=== PATIENT | female | born 1940 | race Caucasian/White ===

== ENCOUNTER 2016-05-17 13:16 | Inpatient (IN) | payer OTHER ==
--- NOTE | ~2016-05-17 | EKG ---
PATIENT: ANAYELI KHAN UNIT #: [id number] Ventricular Rate: 86 BPM Atrial Rate: 86 BPM P-R Interval: 172 ms QRS Duration: 88 ms Q-T Interval: 446 ms QTC Calculation(Bezet): 533 ms P Salem: 63 degrees Calculated R Salem: 64 degrees Calculated T Salem: 169 degrees Diagnosis Line: Sinus rhythm with frequent Premature ventricular Diagnosis Line: complexes Diagnosis Line: ST and T wave abnormality, consider anterolateral Diagnosis Line: ischemia Diagnosis Line: Prolonged QT Diagnosis Line: Abnormal ECG Diagnosis Line: When compared with ECG of 19-MAY-2016 12:01, Diagnosis Line: Premature ventricular complexes are now Present Diagnosis Line: Nonspecific T wave abnormality now evident in Diagnosis Line: Inferior leads Diagnosis Line: Confirmed by RAFFI FRAIRE MD ([id number]) on Diagnosis Line: 06/02/2016 11:59:34 PM INTERPRETING MD: YEE MIRELES
--- NOTE | ~2016-05-17 | XA51 ---
[facility] A Service of [facility] & [facility] RADIOLOGY TEXT RESULTS PATIENT: ANAYELI KHAN LOCATION: [facility] 339-01 : 39 UNIT #: [id number] AGE: [address]: Nikolai Stuart MD SEX: F ORDER DR: [id number] [facility] [address] [place], [place] [address] [id number] I MR#: [id number] Acc #: [id number] NAME: ANAYELI KHAN. : 1940 SEX: F STUDY DATE/TIME: 05/31/2016 7:46 UNIT: [address] ROOM: [facility] STUDY DESCRIPTION: XA BX Bone Marrow Attending Physician: Nikolai Stuart M.D. Ordering Physician: Hardy Mock M.D. Primary Care Physician: Andrés Darby M.D. MEDICAL IMAGING REPORT This report is preliminary unless electronic signature is present EXAM XA Biopsy bone marrow. DATE OF EXAM 05/31/2016 INDICATIONS Pancytopenia and history of fever of unknown origin. FINDINGS Please see CT-guided bone marrow dated 05/31/2016 for results. Dictated by... Karen Hernandez M.D. THIS IS AN ELECTRONICALLY VERIFIED REPORT Karen Hernandez M.D. at 06/06/2016 1:16 PM AFF/jt TD: 06/01/2016 00:23 JOB #: [id number] MEDICAL IMAGING REPORT COPY
--- NOTE | ~2016-05-17 | CT69 ---
[facility] A Service of [facility] RADIOLOGY TEXT RESULTS PATIENT: ANAYELI KHAN LOCATION: [facility] 339-01 : 39 UNIT #: [id number] AGE: [address]: Nikolai Stuart MD SEX: F ORDER DR: [id number] [facility] [address] [place], [place] [address] [id number] I MR#: [id number] Acc #: [id number] NAME: ANAYELI KHAN. : 1940 SEX: F STUDY DATE/TIME: 05/22/2016 19:13 UNIT: [address] ROOM: [facility] STUDY DESCRIPTION: CT Head W Contrast Attending Physician: Nikolai Stuart M.D. Ordering Physician: Lindy Gonzalez M.D. Primary Care Physician: Andrés Darby M.D. MEDICAL IMAGING REPORT This report is preliminary unless electronic signature is present EXAM CT head with contrast DATE 05/22/2016 HISTORY 75-year-old female with nighttime confusion and behavioral changes. Low-grade fever with weakness which began 1 week ago. History of cardiac disease. COMPARISON Noncontrast CT head 03/04/2016. FINDINGS This CT exam was performed with one or more of the following radiation dose reduction techniques: Automatic exposure control, adjustment of mA and/or kV according to patient size, and iterative reconstruction. No enhancing intracranial mass lesion or mass effect is seen. Limited evaluation for presence of intracranial hemorrhage due to the presence of IV contrast; however, no intracranial hemorrhage is seen. There is moderate parenchymal atrophy with compensatory prominence of the ventricles and extraaxial spaces. Centeno matter-white matter junction distinction is preserved without evidence of acute or evolving infarct. Lucent lesion within the right frontal calvarium unchanged from prior studies in keeping with benign finding. No acute or suspicious calvarial abnormalities are appreciated. Major paranasal sinuses appear clear. IMPRESSION 1. No acute intracranial findings. No suspicious intracranial mass lesion. 2. Jsch-gb-gaavudjq parenchymal atrophy. [facility] A Service [facility] RADIOLOGY TEXT RESULTS PATIENT: ANAYELI KHAN LOCATION: [place] [address] : 39 UNIT #: [id number] AGE: [address]: Nikolai Stuart MD SEX: F ORDER DR: Dictated by... Valery Marrufo M.D. THIS IS AN ELECTRONICALLY VERIFIED REPORT Valery Marrufo M.D. at 05/23/2016 2:42 PM [facility]/maryana TD: 05/23/2016 00:28 JOB #: [id number] MEDICAL IMAGING REPORT COPY
--- NOTE | ~2016-05-17 | CR72 ---
[facility] A Service of [facility] & [facility] RADIOLOGY TEXT RESULTS PATIENT: ANAYELI KHAN LOCATION: [facility] : 39 UNIT #: [id number] AGE: [address]: Cindi Ellison MD SEX: F ORDER DR: [id number] [facility] [address] [place], [place] [address] [id number] E MR#: [id number] Acc #: [id number] NAME: ANAYELI KHAN. : 1940 SEX: F STUDY DATE/TIME: 05/17/2016 13:22 UNIT: [facility] ROOM: STUDY DESCRIPTION: CR Chest Single View Portable Attending Physician: Cindi Ellison M.D. Ordering Physician: Cindi Ellison M.D. Primary Care Physician: Andrés Darby M.D. MEDICAL IMAGING REPORT This report is preliminary unless electronic signature is present EXAM AP portable chest 05/17/2016 HISTORY 75-year-old female in the ED complaining of 3-day history of shortness of air, fever and headache. TECHNIQUE AP portable upright chest x-ray. FINDINGS The heart size and pulmonary vascularity are within normal limits. The lungs appear clear. No visible pulmonary infiltrate or pleural effusion. No change since 05/10/2016. IMPRESSION No active disease. No change since 05/10/2016. Dictated by... Cornelius Godoy M.D. THIS IS AN ELECTRONICALLY VERIFIED REPORT Cornelius Godoy M.D. at 05/17/2016 4:53 PM Sole TD: 05/17/2016 15:54 JOB #: [id number] MEDICAL IMAGING REPORT COPY
--- NOTE | ~2016-05-17 | CO ---
Unit #: [id number] #: [id number] Patient: ANAYELI KHAN [id number] [address] [place], [place] [address] [id number] I MR#: [id number] NAME: ANAYELI KHAN ROOM: 339 Age: 75 Sex: F Admission Date: 05/17/2016 : 1940 Attending Physician: Nikolai Stuart M.D. Primary Care Physician: Andrés Darby M.D. Consultation Date: 05/30/2016 CONSULTATION REPORT HISTORY The patient is a 75-year-old female who has been in the hospital since May 17 being evaluated for fever of unknown origin, weakness and pancytopenia. She has had an extensive evaluation by multiple medical services, and infectious disease has requested a temporal artery biopsy to rule out an underlying arteritis. PAST MEDICAL HISTORY Diabetes, coronary artery disease status post angioplasty and stenting, chronic atrial fibrillation, peripheral vascular disease status post carotid stenting, hypothyroidism, depression, hyperlipidemia, B12 deficiency, reflux, dementia, appendectomy, total abdominal hysterectomy with left salpingo-oophorectomy and cataract extraction. ALLERGIES Tegretol. MEDICATIONS Home medications are documented on the reconciliation sheet, but here in the hospital she is on Xanax, prednisone, Santyl ointment, Desenex, vitamin D, Levemir, Aricept, Remeron, aspirin, Zofran, NovoLog, bumetanide, Coreg, vitamin B12, Lipitor, Protonix, ferrous gluconate, Symbicort, Combivent, p.r.n. nitroglycerin, Milk of Magnesia, Ultram, fenofibrate, Synthroid. FAMILY HISTORY Diabetes. SOCIAL HISTORY Nonsmoker, nondrinker. 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 REVIEW OF SYSTEMS Intermittent fevers, particularly at night, often with night sweats and chills. Diffuse muscle weakness with myalgia. PHYSICAL EXAMINATION VITAL SIGNS: On current examination, temperature is 97.3, pulse 72, respirations 21, blood pressure 101/44. GENERAL: She is awake and alert but is a poor historian, and when asking her questions, it is hard to keep her focused on the question at hand. HEENT: She has palpable temporal arteries bilaterally, left greater than right. HEENT exam is, otherwise, unremarkable. CARDIAC: Regular rhythm. Unit #: [id number] #: [id number] Patient: ANAYELI KHAN LUNGS: Clear. ABDOMEN: Soft. EXTREMITIES: No edema. NEUROLOGIC: Grossly intact. DIAGNOSTIC STUDIES LABORATORY: Most recent basic metabolic panel is unremarkable. INR is 1.2. Hemoglobin 9, white count 5,300, platelets 115,000. IMAGING: CT of the abdomen and pelvis showed no acute findings. Chest x-ray - No active disease. CT of the chest was negative for pneumonia. The thyroid gland had small calcific nodules. CT of the head - No acute findings. No mass. There is mild atrophy. ASSESSMENT AND PLAN This is a 75-year-old female being evaluated for fever of unknown origin, diffuse weakness and pancytopenia. As part of a very extensive workup, temporal artery biopsy has been requested. I discussed the procedure with her primary care provider and healthcare surrogate, her daughter Fadia Mccormick, over the telephone. I answered her questions. She understands the risks, benefits, complication and the nature of the procedure, and she agrees to sign consent. Dictated by... Candice Lopez/mark TD: 05/31/2016 08:18 JOB #: [id number] CONSULTATION REPORT X Kahlil Gaspar MD CONSULTATION REPORT
--- NOTE | ~2016-05-17 | CO ---
Unit #: [id number] #: [id number] Patient: ANAYELI KHAN [id number] [facility] [address]. [place], [place] [address] [id number] I MR#: [id number] NAME: ANAYELI KHAN ROOM: 339 Age: 75 Sex: F Admission Date: 05/17/2016 : 1940 Attending Physician: Nikolai Stuart M.D. Primary Care Physician: Andrés Darby M.D. Consultation Date: 05/30/2016 CONSULTATION REPORT DISCUSSION Ms. Anayeli Khan is a 75-year-old white female seen in room 339, bed 1 at [facility] on 05/30/16. Patient was pleasant and cooperative. The patient reported feeling lethargic, tired. The patient's anxiety is better. The patient was calm, cooperative. REVIEW OF SYSTEMS A complete review of systems is unremarkable except as mentioned above. MENTAL STATUS EXAMINATION General appearance - Patient is moderately obese. Attention span, concentration - Fair. Compliant, cooperative. Speech - Low in volume. Oriented to place and person. Mood and affect - Sad, dysphoric. Thought process - Coherent. Thought content - Denied any thoughts of harming self or others or any psychotic symptoms. Recent and remote memory - Fair. Language - Able to name objects, repeat phrases. Fund of knowledge - Fair. Insight and judgment - Fair to slightly impaired. DIAGNOSIS PSYCHIATRIC: F02.80, F33.2. ASSESSMENT AND PLAN 1. Supportive psychotherapy and psychoeducation provided to the patient. 2. Educated about benefits and side effects of medication and course and prognosis of illness. 3. Recommending at this time to discontinue afternoon dose of Xanax, continue with Xanax 0.25 mg in the morning and 0.25 mg in the afternoon, which may be making her somewhat tired. If needed, consider resuming if the patient has (1) with the anxiety. If needed, consider further adjustment in medication. Please feel free to call with any questions, telephone number . Dictated by... Fernando Morales M.D. ROSEANNA/mark TD: 05/31/2016 10:50 JOB #: [id number] Unit #: [id number] #: [id number] Patient: ANAYELI KHAN CONSULTATION REPORT X Fernando Morales MD CONSULTATION REPORT
--- NOTE | ~2016-05-17 | CT2 ---
[facility] A Service of [facility] & [facility] RADIOLOGY TEXT RESULTS PATIENT: ANAYELI KHAN LOCATION: [facility] 339-01 : 39 UNIT #: [id number] AGE: [address]: Nikolai Stuart MD SEX: F ORDER DR: [id number] [facility] [address] [place], [place] [address] [id number] I MR#: [id number] Acc #: [id number] NAME: ANAYELI KHAN. : 1940 SEX: F STUDY DATE/TIME: 05/26/2016 13:33 UNIT: [address] ROOM: [facility] STUDY DESCRIPTION: CT Abd and Pelv W Cont Attending Physician: Nikolai Stuart M.D. Ordering Physician: Fabio Houston M.D. Primary Care Physician: Andrés Darby M.D. MEDICAL IMAGING REPORT This report is preliminary unless electronic signature is present EXAM CT abdomen and pelvis with oral and IV contrast, 05/26/2016 HISTORY Fever today. Anemia. TECHNIQUE This CT exam was performed with one or more of the following radiation dose reduction techniques: automatic exposure control, adjustment of mA and/or kV according to patient size, and iterative reconstruction. FINDINGS CT abdomen and pelvis was performed without contrast. CT ABDOMEN: Small hiatal hernia. The liver, spleen, pancreas, right kidney, and adrenal glands are unremarkable. Parenchymal scar in the upper pole left kidney and 1.5 cm cyst in the upper pole left kidney. Subcentimeter incidental cyst in the mid right kidney. The gallbladder is contracted. Incidental 4 cm descending duodenal diverticulum. Old ununited bilateral lower rib fractures. Normal caliber abdominal aorta. No bowel dilatation. No adenopathy. No ascites. CT PELVIS: No free fluid. No loculated fluid collection. No inflammatory changes. Hysterectomy. Moderate-sized rectocele. Left inguinal hernia containing fat measuring 6 cm. No bowel herniation. No bowel obstruction. IMPRESSION 1. No acute findings in the abdomen or pelvis. No free fluid or abscess or inflammatory changes. 2. Moderate-sized rectocele. 3. Left inguinal hernia containing fat measuring 6 cm. [facility] A Service of [facility] & [facility] RADIOLOGY TEXT RESULTS PATIENT: ANAYELI KHAN LOCATION: A 339-01 : 39 UNIT #: [id number] AGE: [address]: Nikolai Stuart MD SEX: F ORDER DR: 4. Parenchymal scar in the upper pole left kidney and small incidental bilateral renal cysts. 5. Incidental small hiatal hernia and incidental 4 cm descending duodenal diverticulum. 6. No bowel obstruction or urinary obstruction. Dictated by... Nathanael Davis M.D. THIS IS AN ELECTRONICALLY VERIFIED REPORT Nathanael Davis M.D. at 05/27/2016 2:15 PM GLADIS/chung TD: 05/27/2016 04:38 JOB #: [id number] MEDICAL IMAGING REPORT COPY
--- NOTE | ~2016-05-17 | CO ---
Unit #: [id number] #: [id number] Patient: ANAYELI KHAN [id number] [address] [place], [place] [address] [id number] I MR#: [id number] NAME: ANAYELI KHAN ROOM: [facility] Age: 75 Sex: F Admission Date: 05/17/2016 : 1940 Attending Physician: Nikolai Stuart M.D. Primary Care Physician: Andrés Darby M.D. Consultation Date: 06/03/2016 CONSULTATION REPORT DISCUSSION Ms. San[place] is a 75-year-old female seen on 06/03/16. Patient interviewed, chart reviewed, obtained information from nursing staff. Patient was tearful, anxious, nervous, depressed. Patient reported that she is upset about getting all those tests done. Patient also reported still here and not sure if she is going back to [facility]. Patient's vital signs are stable. Compliance, cooperative. No agitation. REVIEW OF SYSTEMS Complete review of systems unremarkable. MENTAL STATUS EXAMINATION GENERAL APPEARANCE: Patient dressed casually in hospital attire, cooperative but mood was sad, dysphoric, anxious. Attention span and concentration fair. Speech - regular rate. Oriented in time, place and person. Mood and affect were sad, dysphoric, anxious, tearful. Thought process coherent. Thought content - denies any thoughts of harming self or others nor any psychotic symptoms. Recent and remote memory poor to slightly impaired. Language intact. Fund of knowledge fair. Insight and judgment fair to slightly impaired. DIAGNOSIS PSYCHIATRIC: F02.80, F33.2, F40.01. ASSESSMENT/PLAN 1. Supportive psychotherapy and psychoeducation provided to patient. 2. Educate about benefits and side effects of medications and course and prognosis of illness. Advised to continue with current medication and therapeutic protocol. Patient may be more anxious because of patient being on prednisone. We will continue to follow. If needed, consider further adjustment of medication. Please feel free to call if any questions. Telephone number [phone]. Dictated by... Candice Treviño/anders TD: 06/04/2016 11:34 JOB #: [id number] Unit #: [id number] #: [id number] Patient: BILLANAYELI CONSULTATION REPORT X Fernando Morales MD CONSULTATION REPORT
--- NOTE | ~2016-05-17 | CT134 ---
[facility] A Service of [facility] RADIOLOGY TEXT RESULTS PATIENT: ANAYELI KHAN LOCATION: [facility] 339-01 : 39 UNIT #: [id number] AGE: [address]: Nikolai Stuart MD SEX: F ORDER DR: [id number] [facility] [address] [place], [place] [address] [id number] I MR#: [id number] Acc #: [id number] NAME: ANAYELI KHAN. : 1940 SEX: F STUDY DATE/TIME: 05/31/2016 7:46 UNIT: [address] ROOM: [facility] STUDY DESCRIPTION: CT Guide Attending Physician: Nikolai Stuart M.D. Ordering Physician: Hardy Mock M.D. Primary Care Physician: Andrés Darby M.D. MEDICAL IMAGING REPORT This report is preliminary unless electronic signature is present EXAM CT-guided bone marrow biopsy. DATE OF EXAM 05/31/2016 INDICATIONS Pancytopenia and history of fever of unknown origin. TECHNIQUE NOTE: This CT exam was performed with one or more of the following radiation dose reduction techniques: automatic exposure control, adjustment of mA and/or kV according to patient size, and iterative reconstruction. The procedure, risks, benefits, and alternatives to the procedure were explained to the patient, and signed, informed consent was obtained. She was placed prone on the CT scanner gantry, preliminary CT scan was performed through the region of interest. An appropriate site overlying the patient's left iliac bone was selected. The overlying skin was marked. The patient was prepped and draped in the usual sterile fashion. Time-out was performed as per protocol, and skin and subcutaneous tissues were anesthetized with buffered lidocaine, and bone marrow biopsy needle was advanced into the left iliac bone. Repeat CT scan confirmed appropriate trajectory of the needle which was subsequently advanced into the left iliac bone and a bone marrow aspirate was obtained. The needle was advanced further into the bone marrow and then removed which appeared to yield an adequate core sample. Manual pressure was then applied until hemostasis was obtained. The patient did receive conscious sedation consisting of 1 mg of Versed and 25 mcg fentanyl, and continuous monitoring was provided throughout the procedure. IMPRESSION [facility] A Service of [facility] & [facility] RADIOLOGY TEXT RESULTS PATIENT: ANAYELI KHAN LOCATION: [facility] 339-01 : 39 UNIT #: [id number] AGE: [address]: Nikolai Stuart MD SEX: F ORDER DR: Technically successful bone marrow biopsy and aspiration as noted above. CT was used during the procedure and permanent images were saved. Dictated by... Karen Hernandez M.D. THIS IS AN ELECTRONICALLY VERIFIED REPORT Karen Hernandez M.D. at 06/06/2016 1:16 PM JULES/tho TD: 06/01/2016 00:18 JOB #: [id number] MEDICAL IMAGING REPORT COPY
--- NOTE | ~2016-05-17 | CO ---
Unit #: [id number] #: [id number] Patient: ANAYELI KHAN [id number] [address] [place], [place] [address] [id number] I MR#: [id number] NAME: ANAYELI KHAN. ROOM: 339 Age: 75 Sex: F Admission Date: 05/17/2016 : 1940 Attending Physician: Nikolai Stuart M.D. Primary Care Physician: Andrés Darby M.D. CONSULTATION REPORT REASON FOR CONSULTATION Hyponatremia. HISTORY OF PRESENT ILLNESS A 75-year-old female with significant past medical history of peripheral vascular disease, coronary artery disease, some history of congestive heart failure. Recently admitted to the hospital with low sodium and discharged later once sodium started getting better. The patient was that time on antidepressant and sodium level was 126 at the time of admission and 132 this morning with just with the fluid restriction and loop diuretics. The patient also had a fever off and on going on for the last 3 to 4 days and also getting increasingly weak and decreased p.o. intake and she was going to pass out at home. She has also had some EKG changes and Cardiology is going to evaluate the patient. No other complaint at this time. Review of systems already explained. PAST MEDICAL HISTORY Significant for coronary artery disease, atrial fibrillation, hyponatremia, peripheral vascular disease, hypertension, dyslipidemia COPD. PAST SURGICAL HISTORY Oophorectomy, appendectomy, hysterectomy. HOME MEDICATIONS Reviewed that did include Coreg, Bumex, ferrous sulfate, duloxetine, amiodarone, losartan, vitamin B12, Lipitor, Desyrel, melatonin, Ultram, Zofran, lorazepam, NovoLog insulin. SOCIAL HISTORY The patient has no history of smoking. FAMILY HISTORY Unremarkable. PHYSICAL EXAMINATION GENERAL: The patient is an elderly female, not in any acute distress. VITAL SIGNS: Last blood pressure is 110/60, pulse is 90, temperature 98, respiratory rate 18. HEAD AND NECK: Pupils are reactive to light. Extraocular movements intact. NECK: Supple. CHEST: The patient has bilateral air entry. No crackles. HEART: Regular rate and rhythm. No murmur. No gallop. S1 and S2 Unit #: [id number] #: [id number] Patient: ANAYELI KHAN audible. ABDOMEN: Soft. Bowel sounds are positive. No guarding. No rigidity. EXTREMITIES: No edema. Peripheral pulses are palpable. NEUROLOGIC: Grossly nonfocal. DIAGNOSTIC STUDIES LABORATORY RESULTS: Showed sodium level is 132 today, with potassium of 3.5, chloride 94, bicarb 30, BUN 18, creatinine 0.7. White cell count 3.9, hemoglobin 9.7, hematocrit 28. ASSESSMENT AND PLAN 1. Hyponatremia. 2. Hypokalemia. 3. Hypertension. 4. Coronary artery disease and congestive heart failure. DISCUSSION At this time, the patient's volume status seems pretty acceptable. Sodium level has already improved. Continue fluid restriction. Decrease Bumex to 1 mg p.o. daily. Follow up with the blood pressure closely. Follow up with the Cardiology for any further workup regarding the patient's EKG changes. If the patient's fever is not improving, further workup will be needed either by Infectious Disease or Respiratory. Thank you for letting me to participate in taking care of this patient. Dictated by... Candice Tobin/rajni TD: 05/18/2016 12:52 JOB #: [id number] CONSULTATION REPORT X Marcus Yuen MD CONSULTATION REPORT
--- NOTE | ~2016-05-17 | NM73 ---
[facility] A Service of [facility] RADIOLOGY TEXT RESULTS PATIENT: ANAYELI KHAN LOCATION: [facility] : 39 UNIT #: [id number] AGE: [address]: Nikolai Stuart MD SEX: F ORDER DR: [id number] [facility] [address] [facility]. [place], [place] [address] [id number] I MR#: [id number] Acc #: [id number] NAME: ANAYELI KHAN. : 1940 SEX: F STUDY DATE/TIME: 05/30/2016 9:20 UNIT: [address] ROOM: [address] [place] [address] DESCRIPTION: AK Radiopharm Loc Inflam Whole Attending Physician: Nikolai Stuart M.D. Ordering Physician: Fabio Houston M.D. Primary Care Physician: Andrés Darby M.D. MEDICAL IMAGING REPORT This report is preliminary unless electronic signature is present EXAM Gallium study, whole body HISTORY Fever of unknown origin. Evaluation for abscess. FINDINGS The patient was given 7.2 mCi of Gallium 67 on 05/29 and 24 and 48 hours images were obtained. The patient refused 72 hour images. The images show normal uptake in the liver spleen and bone marrow. There is increased uptake in both shoulder joints which appears to be confined to the humeral heads and is probably within normal limits. IMPRESSION No abscesses suggested. Normal Gallium study. Dictated by... Fernando Thomas M.D. THIS IS AN ELECTRONICALLY VERIFIED REPORT Fernando Thomas M.D. at 06/02/2016 3:07 PM KAREN/zully TD: 06/02/2016 05:47 JOB #: [id number] MEDICAL IMAGING REPORT [facility] A Service [facility] RADIOLOGY TEXT RESULTS PATIENT: ANAYELI KHAN LOCATION: [facility] : 39 UNIT #: [id number] AGE: [address]: Nikolai Stuart MD SEX: F ORDER DR: COPY
--- NOTE | ~2016-05-17 | CO ---
Unit #: [id number] #: [id number] Patient: ANAYELI KHAN [id number] [facility] [address] [facility]. [place], [place] [address] [id number] I MR#: [id number] NAME: ANAYELI KAHN ROOM: 339 Age: 75 Sex: F Admission Date: 05/17/2016 : 1940 Attending Physician: Nikolai Stuart M.D. Primary Care Physician: Andrés Darby M.D. Consultation Date: 05/26/2016 CONSULTATION REPORT REASON FOR CONSULTATION Followup. DISCUSSION Ms. Anayeli Khan is a 75-year-old white female, seen on 05/26/2016, in room 339 at [facility]. The patient was lying comfortably in bed, receiving oxygen through the nasal cannula. The patient's vital signs were temperature 97.7, 100, 16, 135/49. The patient reports that she still has no energy. Feeling sad, dysphoric, flat. The patient reports that her daughter is worried about her. The patient reports that she will be going to a nursing facility after this. The patient is compliant with medication. Currently, on Levemir, Aricept, Remeron, Xanax. Sleeping good. Complete review of systems unremarkable. MENTAL STATUS EXAMINATION General appearance, the patient dressed casually. Attention span and concentration, fair. Speech, regular rate. Oriented in place and person. Mood and affect were sad, dysphoric, anxious. Thought process, coherent and goal directed. The patient denied any thoughts of harming self or others or any psychotic symptom. Recent and remote memory, fair to slightly impaired. Language, able to name object. Fund of knowledge, fair to slightly impaired. Insight and judgment, fair to slightly impaired. DIAGNOSES Psychiatric: F02.80, F33.2. ASSESSMENT/PLAN 1. Supportive psychotherapy and psychoeducation provided to the patient. 2. Educated about benefits and side effects of medication and course and prognosis of illness. 3. Plan to cut back on Xanax afternoon dose if the patient is too sleepy or drowsy. The patient is currently on Xanax 0.25 mg t.i.d. We will closely monitor and try to keep the medication minimum as possible. Please feel free to call if any questions, telephone #[phone]. Dictated by... Candice Treviño/rajni TD: 05/26/2016 20:20 JOB #: [id number] Unit #: [id number] #: [id number] Patient: ANAYELI KHAN CONSULTATION REPORT X Fernando Morales MD X CONSULTATION REPORT
--- NOTE | ~2016-05-17 | CO ---
Unit #: [id number] #: [id number] Patient: ANAYELI KHAN [id number] [address] [place], [place] [address] [id number] I MR#: [id number] NAME: ANAYELI KHAN. ROOM: [facility] access hospital Age: 75 Sex: F Admission Date: 05/17/2016 : 1940 Attending Physician: Nikolai Stuart M.D. Primary Care Physician: Andrés Darby M.D. Consultation Date: 05/19/2016 CONSULTATION REPORT The patient was admitted to Dr. Stuart. REASON FOR CONSULTATION Fevers. HISTORY OF PRESENT ILLNESS This is a 75-year-old female, who is sitting in a chair comfortably when I enter the room. The patient reports that she came from the nursing facility due to fevers. Per the chart, the patient did have some fevers at the retirement and also had a near syncopal episode and she was admitted for further evaluation. There is a daughter at the bedside that also assist in giving the history. The patient and the daughter reports that she has had fever for several months; however, looking back it appears that this is more of an acute onset of fever up to about 102 degrees Fahrenheit that has been intermittent. The patient does not have any specific complaints. She says she has a chronic headache. She denies any new shortness of air, but has some occasional cough. She denies any chest pain or diarrhea, but did vomit x1 in the retirement. She has no UTI signs or symptoms and she reports some small wounds on her backside. The patient has not been placed on antibiotics and ID was asked to evaluate for etiology of fever. Cardiology is also following due to recent hospitalization for atrial fibrillation. PAST MEDICAL HISTORY Include coronary artery disease, atrial fibrillation, hyponatremia, peripheral vascular disease, hypertension, dyslipidemia, and COPD. She has endometrial cancer, status post hysterectomy. PAST SURGICAL HISTORY As previously stated; hysterectomy, oophorectomy, and appendectomy. ALLERGIES Tegretol and gabapentin. MEDICATIONS The patient is not currently on any antibiotics. For other medications, please refer to patient's MAR. She is currently on here Cymbalta, DuoNeb, Synthroid, fenofibrate, potassium, Cozaar, Pradaxa, Symbicort, Bumex, Fergon, vitamin D, aspirin, Lipitor, trazodone, melatonin, insulin, Protonix. SOCIAL HISTORY She denies any alcohol or tobacco abuse. She is intermittently in a rehab facility. Unit #: [id number] #: [id number] Patient: ANAYELI KHAN REVIEW OF SYSTEMS Negative except for as previously mentioned in the history of present illness. PHYSICAL EXAMINATION VITAL SIGNS: Temperature 98.1 with a T-max of 102.3, pulse is 79, blood pressure is 120/51, respiratory rate is 19. GENERAL: This is no apparent distress female, who is currently sitting in the chair comfortably. HEENT: Her pupils are equal. NECK: Supple. CARDIOVASCULAR: S1, S2 with regular rate. PULMONARY: Clear to auscultation bilaterally with no wheezes or rhonchi noted. ABDOMEN: Positive bowel sounds. Soft and nontender. EXTREMITIES: No clubbing or cyanosis. Trace edema. She has 3 shallow stage II wounds on her buttocks, but do not have any excessive drainage or erythema. DIAGNOSTIC STUDIES LABORATORY RESULTS: BUN 17, creatinine 0.7, sodium 131, potassium 4.7, chloride 89, CO2 33, bilirubin 0.7. AST 42, ALT is 19. Procalcitonin 0.21. Lactic acid is 1.9. WBC 4.3, hemoglobin 9.5, hematocrit 27.9, platelets 111. Urinalysis is unremarkable. Flu screen is negative. Blood cultures are negative to date. IMAGING STUDIES: Chest x-ray is negative. IMPRESSION This is a 75-year-old female, admitted from the retirement due to intermittent fevers and chills. The patient also is noted to have a near syncopal episode and she has also been recently admitted for atrial fibrillation followed by Cardiology. The patient's workup is negative for bacteremia, pneumonia, and urinary tract infection. The patient has no obvious signs of infection and fever maybe viral related versus non-infection versus drug fever as the patient is on levothyroxine. At this time, an DMITRIY is currently pending. We will also check a rheumatoid factor. We will check a respiratory viral panel, but we will recommend to hold antibiotics at this time as there is no clear indication for its use. The patient appears nontoxic and stable at this time. We will continue to follow temperature spikes and discuss further with Dr. Vishal Agarwal. The patient also states that she has recently at [facility] in the past for a similar etiology and will review the records when available. Thank you for allowing us to participate in the care of this patient. Further recommendations to follow pending the patient's clinical course. Dictated by... Debby Turcios A.P.R.N. for Candice Raymundo/rajni TD: 05/20/2016 07:50 JOB #: [id number] Unit #: [id number] #: [id number] Patient: ANAYELI KHAN CONSULTATION REPORT X X CONSULTATION REPORT
--- NOTE | ~2016-05-17 | CO ---
Unit #: [id number] #: [id number] Patient: ANAYELI KHAN [id number] [facility] [address] [facility]. [place], [place] [address] [id number] I MR#: [id number] NAME: ANAYELI KHAN. ROOM: 339 Age: 75 Sex: F Admission Date: 05/17/2016 : 1940 Attending Physician: Nikolai Stuart M.D. Primary Care Physician: Andrés Darby M.D. Consultation Date: 05/22/2016 CONSULTATION REPORT REASON FOR CONSULTATION Depression, confusion, dementia, anxiety. HISTORY OF PRESENT ILLNESS Ms. Anayeli Khan is a 75-year-old white female, seen on 05/22/2016 in room 339. The patient lives at home with her daughter. The patient was interviewed in room 339 of [facility]. The patient reported that she has a history of depression and anxiety and was on Xanax, which was switched to Ativan. The patient reports that she did poorly on this medication having more problem with dizziness, still having problem with the anxiety, problem with the memory. The patient reports having problem with word finding and confusion. The patient reports that she may be going to jail as her daughter works. The patient seemed somewhat sad and depressed, but denied any suicidal or homicidal ideation. Denied any psychotic symptom. PAST PSYCHIATRIC HISTORY Remarkable for history of depression and anxiety, history of problem with the memory. MEDICAL HISTORY Remarkable for history of coronary artery disease, atrial fibrillation, hyponatremia, peripheral vascular disease, hypertension, dyslipidemia, COPD, endometrial cancer, status post hysterectomy. MEDICATION HISTORY The patient is on Cymbalta 60 mg b.i.d., Ativan 1 mg b.i.d., trazodone 50 mg at bedtime, aspirin, Zofran, NovoLog, Coreg; please refer to MAR for details. FAMILY HISTORY AND SOCIAL HISTORY The patient lives with her daughter and has a good support system. No history of any abuse. No history of any substance abuse. REVIEW OF SYSTEMS Complete review of systems is unremarkable except for problem with confusion. MENTAL STATUS EXAMINATION General appearance, the patient is dressed casually in hospital attire, sitting comfortably in chair. Attention span and concentration, fair. Speech, slow, long pauses. Oriented in place and person. Mood and affect were sad, dysphoric, anxious. Thought process, coherent, goal directed. Thought content, the patient denied any thoughts of harming self or Unit #: [id number] #: [id number] Patient: ANAYELI KHAN others, but somewhat guarded. Recent and remote memory, the patient is noticed to have problem with immediate and short term memory. Language, able to name object, repeat phrases. Fund of knowledge, fair. Insight and judgment, fair to slightly impaired. DIAGNOSES 1. Major depressive disorder, recurrent, severe, F33.2. 2. Anxiety disorder, not otherwise specified. 3. 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 Secondary diagnosis: Deferred. Medical diagnosis: Please refer to H and P. Stressors: Psychosocial stressors. ASSESSMENT/PLAN 1. Supportive psychotherapy and psychoeducation were provided to the patient. 2. Educated about benefits and side effects of medication and course and prognosis of illness. 3. Also called the patient's daughter and discussed the case in detail and obtained information and answered all her questions. Advised at this time to switch Cymbalta to Remeron 15 mg at bedtime, stop trazodone, and switch Ativan to Xanax 0.25 mg t.i.d. and Xanax 0.5 mg q.4 p.r.n. for severe anxiety. We will closely monitor. Also advised Aricept 5 mg at bedtime for symptoms of dementia. We will continue to follow. Please feel free to call if any questions, telephone #[phone]. Dictated by... Candice Treviño/rajni TD: 05/24/2016 07:07 JOB #: [id number] CONSULTATION REPORT X Fernando Morales MD X CONSULTATION REPORT
--- NOTE | ~2016-05-17 | OR ---
Unit #: [id number] #: [id number] Patient: ANAYELI KHAN [id number] [facility]. [place], [place] [address] [id number] López MR#: [id number] NAME: ANAYELI KHAN ROOM: [facility] Date of Procedure: 06/04/2016 Admission Date: 05/17/2016 Surgeon: Dann Marley III, M.D. : 1940 Attending Physician: Nikolai Stuart M.D. Primary Care Physician: Andrés Darby M.D. OPERATIVE REPORT PREOPERATIVE DIAGNOSES Anemia and heme-positive stools. POSTOPERATIVE DIAGNOSES Gastritis near the cardia of the stomach and extremely poor colon prep. PROCEDURES PERFORMED Esophagogastroduodenoscopy with biopsy and colonoscopy to hepatic flexure. ANESTHESIA MAC. SPECIMENS Antrum was sent for STEFAN testing and self pay representative biopsies were obtained of the cardia. COMPLICATIONS None apparent. INDICATIONS FOR PROCEDURE This is a 75-year-old lady, who has had prolonged hospitalization for workup of fever of unknown origin. She has also been diagnosed with heme-positive stools and some mild anemia. She is here today for upper and lower endoscopy. DESCRIPTION OF PROCEDURE After consent was obtained, the patient was brought to the endoscopy suite and placed in the left lateral decubitus position. We titrated the above sedation and I passed an EGD scope easily into the esophagus under direct visualization. She had normal peristalsis. No evidence of any erosions or esophagitis. I did not see hiatal hernia. I advanced the scope on into the stomach and the lower half of the stomach appeared normal with a patent pylorus and the first and second portions of the duodenal appeared normal. I then retroflexed the scope within the cardia. I saw patchy area of gastritis. There was no active bleeding. No actual ulcers. I took self pay representative biopsies of this area and then also obtained a specimen of the antrum for STEFAN testing. The scope was straightened and then carefully withdrawn. I then performed a rectal exam and noted that there were no masses. The scope was placed within the rectal vault. Air was insufflated and she had an extremely poor bowel prep. I could only get the scope to approximately the hepatic flexure. There was a lot of residue along the hickman of the colon that certainly would make it possible Unit #: [id number] #: [id number] Patient: ANAYELI KHAN and likely to miss small lesions. I did not see any dominant masses. She did have a colonoscopy approximately 2 years ago. There was no sign of any burgundy stool or recent GI bleeding. The scope was carefully withdrawn. I did not see any other masses. The patient tolerated the procedure without any problems and returned to the floor in stable condition. Dictated by... Dann Marley III, M.D. VCL/rajni TD: 06/06/2016 02:22 JOB #: [id number] OPERATIVE REPORT X Dann Marley III, MD X PROCEDURE OPERATIVE NOTE
--- NOTE | ~2016-05-17 | CR72 ---
[facility] A Service of [facility] RADIOLOGY TEXT RESULTS PATIENT: ANAYELI KHAN LOCATION: [facility] 339-01 : 39 UNIT #: [id number] AGE: [address]: Nikolai Stuart MD SEX: F ORDER DR: [id number] [facility] [address] [facility]. [place], [place] [address] [id number] I MR#: [id number] Acc #: [id number] NAME: ANAYELI KHAN. : 1940 SEX: F STUDY DATE/TIME: 05/24/2016 22:40 UNIT: [address] ROOM: [facility] STUDY DESCRIPTION: CR Chest Single View Portable Attending Physician: Nikolai Stuart M.D. Ordering Physician: Nikolai Stuart M.D. Primary Care Physician: Andrés Darby M.D. MEDICAL IMAGING REPORT This report is preliminary unless electronic signature is present EXAM Portable chest, 05/24 at 22:40 INDICATION Fever, headache and shortness of air that started today. FINDINGS AP portable chest is compared with 05/17/2016. The cardiac and mediastinal contours are within normal limits and unchanged. No acute infiltrates are identified. No pneumothorax. IMPRESSION No active disease and no interval change. Dictated by... Kahlil Clark Jr., M.D. THIS IS AN ELECTRONICALLY VERIFIED REPORT Kahlil Clark Jr., M.D. at 05/25/2016 10:59 PM PIETRO/harry TD: 05/25/2016 15:52 JOB #: [id number] MEDICAL IMAGING REPORT COPY
--- NOTE | ~2016-05-17 | CO ---
Unit #: [id number] #: [id number] Patient: ANAYELI KHAN [id number] [address] [place], [place] [address] [id number] I MR#: [id number] NAME: ANAYELI KHAN ROOM: 339 Age: 75 Sex: F Admission Date: 05/17/2016 : 1940 Attending Physician: Nikolai Stuart M.D. Primary Care Physician: Andrés Darby M.D. Consultation Date: 05/28/2016 CONSULTATION REPORT REASON FOR CONSULTATION Anemia, thrombocytopenia with continued fever. HISTORY OF PRESENT ILLNESS Ms. Denia Pgaan is a 75-year-old whom I have seen in the past in 02/2016 for pancytopenia. She is admitted to hospital on 05/17/2016, complaining of weakness and fevers. She has had persistent fevers, primarily at nighttime, spiking a temperature a 102 with no clear etiology of on-site. Ms. Pagan is a poor historian and historical information was obtained partly from the chart, but she tells me that ever since the hospital admission in 02/2016, she is continued to feeling weak without much energy and has been having fevers on and off with an occasional headache and some shortness of breathing. She has episodic chills, some night sweats, but not soaking. Following admission, she has had scans, blood cultures, urine cultures, all of which are negative, leading to this consultation. On reviewing records, she has a long history of anemia with the most recent hemoglobin of 05/25/2016 being 9.9 with anemia dating back to 02/2016. She has also been thrombocytopenic with the most recent platelet count of 101 whereas thrombocytopenia again dating back to 02/2016, her white count is currently 5300, and has been in normal range. RBC indices were normocytic. CBC with an elevated RDW and retic count done on 04/30/2015 was elevated at 7.1, a sed rate of 50. LDH was elevated at 346. Bilirubin is 0.7 with a direct of 0.3. PAST MEDICAL HISTORY Longstanding diabetes; coronary artery disease with a history of angioplasty and stent placement; chronic atrial fibrillation, previously in anticoagulation, Pradaxa; peripheral vascular disease with carotid stent; hypothyroidism; depression; hyperlipidemia; B12 deficiency; and gastroesophageal reflux disease. PAST SURGICAL HISTORY Appendectomy, left total abdominal hysterectomy with salpingo-oophorectomy and cataract extraction. ALLERGIES She is allergic to Tegretol. FAMILY HISTORY Notable for multiple family members with diabetes. SOCIAL HISTORY Previously smoked. Does not drink any alcohol. She came from a group home, but usually lives with her daughter, who is a primary caregiver. Unit #: [id number] #: [id number] Patient: ANAYELI KHAN REVIEW OF SYSTEMS 14-point review of systems was taken, was limited by patient's being a poor historian and currently having chills. CONSTITUTIONAL: Fatigue and weakness as discussed. EYES: Negative. EARS, NOSE, MOUTH, AND THROAT: Negative. CARDIOVASCULAR: No chest pain or palpitations. RESPIRATORY: Some shortness of breathing, and some cough with expectoration. GASTROINTESTINAL: Negative. GENITOURINARY: Negative. NEUROLOGIC: History of dementia. ALLERGIC/LYMPHATIC: Negative. SKIN: Negative. PSYCHIATRIC: History of depression. She has been seen by psychiatry during this hospital stay. PHYSICAL EXAMINATION GENERAL: She is a pleasant elderly woman in some distress secondary to chills. VITAL SIGNS: Temperature 97.9, pulse 75, respiratory rate is 20, blood pressure is 88/41, O2 saturation 100% on room air. HEENT: Shows mild pallor. No icterus. Pupils are equal and reactive well to light. Mucous membranes are moist. NECK: Without adenopathy, JVD, or thyromegaly. CARDIOVASCULAR: First and second heart sounds are regular without murmurs, gallops, or rubs. LUNGS: Chest expansion is symmetric bilaterally. Equal normal breath sounds. ABDOMEN: Soft and nontender. Liver or spleen not palpable. No inguinal adenopathy. LYMPHATIC: No adenopathy. NEUROLOGIC: She is awake, alert, and oriented x3 without any focal findings. SKIN: Negative. PSYCHIATRIC: Tearful. Affect flat. DIAGNOSTIC STUDIES LABORATORY RESULTS: CBC as mentioned. Vitamin D is 13. Basic metabolic panel shows a BUN of 16, creatinine is 0.9. IMAGING STUDIES: CT scan of the abdomen and pelvis done on 05/27/2016 shows no acute findings with a moderate size rectocele. CT of the chest done earlier shows no evidence of pneumonia. ASSESSMENT AND PLAN Ms. Denia Pagan is a 75-year-old with a history of mild dementia, anemia, and thrombocytopenia with recurrent fevers, primarily at nighttime. She is also moderately anemic with normocytic indices and elevated RDW, which is persistent in 02/2016. She has had a high retic count as well as elevated LDH suggesting the possibility of hemolysis. Additionally, she has been on amiodarone for her atrial fibrillation in the past, which may produce hypothyroidism. RECOMMENDATIONS 1. Free T4 and TSH levels. 2. Haptoglobin, retic count, CBC, LDH. Unit #: [id number] #: [id number] Patient: ANAYELI KHAN 3. Bone marrow aspiration and biopsy will be drawn by Interventional Radiology tomorrow with flow cytometry. Plans were discussed in detail with Mrs. Pagan. Dictated by... Candice Vazquez/rajni TD: 05/29/2016 06:44 JOB #: [id number] CONSULTATION REPORT X Hardy Mock MD X CONSULTATION REPORT
--- NOTE | ~2016-05-17 | HP ---
Unit #: [id number] #: [id number] Patient: ANAYELI KHAN [id number] [address] [address] [id number] MR#: [id number] NAME: ANAYELI KHAN. ROOM: [facility] Age: 75 Sex: F Admission Date: 05/17/2016 : 1940 Attending Physician: Nikolai Stuart M.D. Primary Care Physician: Andrés Darby M.D. HISTORY AND PHYSICAL ADMISSION DIAGNOSES 1. Fever. 2. Questionable near syncopal episode. 3. History of coronary artery disease. 4. History of peripheral vascular disease. 5. Chronic hyponatremia. 6. History of asthma. 7. History of hypertension. 8. Dyslipidemia. 9. Diabetes. 10. Depression. 11. Hypothyroidism. HISTORY OF PRESENT ILLNESS Mr. Anayeli Khan is a 75-year-old, female well known to our service secondary to multiple admissions previously. The last admission was in April and she was discharged on May 06 with the hyponatremia and paroxysmal AFib and started on Pradaxa. Patient went to subacute rehab. Apparently, at the rehab last Friday, she started having some low-grade fever and then she got increasingly weak and fatigued and had near syncope episode. Was brought to the emergency room and she was found once again hyponatremic with a sodium of 126 along with some prolonged QT on the EKG and therefore admitted. Currently, she denies any chest pain. Denies any shortness of air or dyspnea, nausea, vomiting, diarrhea, or abdominal pain. Denies any dysuria. Denies any headache or dizziness. REVIEW OF SYSTEMS So, 12-point review of systems on this patient is basically negative, except as above. PAST MEDICAL HISTORY Significant for history of coronary artery disease, history of paroxysmal AFib, history of chronic hyponatremia, history of peripheral vascular disease, diabetes, hypertension, dyslipidemia, COPD and asthma, and hypothyroidism. PAST SURGICAL HISTORY Significant for appendectomy, bilateral salpingo-oophorectomy, cataract extraction, total abdominal hysterectomy, cardiac cath with stents, and right carotid stent placement as well. HOME MEDICATIONS She is on: Unit #: [id number] #: [id number] Patient: ANAEYLI KHAN 1. DuoNeb. 2. Levothyroxine. 3. Fenofibrate. 4. Klor-Con. 5. Losartan. 6. Vitamin B12. 7. Amiodarone. 8. Pradaxa. 9. Symbicort. 10. Sodium chloride tablets. 11. Coreg. 12. Bumex. 13. Ferrous sulfate. 14. Duloxetine. 15. Vitamin D2. 16. Aspirin. 17. Lipitor. 18. Desyrel. 19. Melatonin. 20. Ultram. 21. Zofran. 22. Milk of mag. p.r.n. 23. Lorazepam. 24. Nitrostat. 25. Tylenol p.r.n. 26. NovoLog. 27. Levemir 40 units at bedtime. 28. NovoLog 12 units subcu. t.i.d. with meals. 29. Santyl topically. ALLERGIES Allergic Tegretol and gabapentin. SOCIAL HISTORY No current history of tobacco, alcohol, or illicit drug use. FAMILY HISTORY Unremarkable. PHYSICAL EXAMINATION GENERAL APPEARANCE: Patient is a 75-year-old female in no acute distress. VITAL SIGNS: BP 127/40, heart rate 94, respirations 18, and temperature 98.9. HEENT: Head is atraumatic. Pupils equal, round, and reactive to light and accommodation. Extraocular muscles intact. Oropharynx clear. NECK: Supple. No mass, no JVD, and no bruits. CHEST: Diminished bilaterally. CARDIOVASCULAR: S1 and S2. No murmurs. ABDOMEN: Soft, nontender, nondistended, and obese. Bowel sounds are diminished. LOWER EXTREMITIES: Without any cyanosis, clubbing, or edema. NEUROLOGIC: Patient grossly intact. No focal deficits. DIAGNOSTIC STUDIES IMAGING: Chest x-ray negative. LABORATORY: Chemistry significant for sodium of 127, chloride 88, AST 48, alk phos 99. Coagulation panel: PT 14.8, INR 1.4, and PTT 50.4. Serial Unit #: [id number] #: [id number] Patient: ANAYELI KHAN cardiac enzymes negative. H and H 9.9 and 29.5 and platelets 107. ASSESSMENT AND PLAN 1. Increased weakness and fatigue with near syncope and prolonged QT with some EKG changes in a patient with the coronary artery disease and paroxysmal AFib. Admit to a telemetry bed. Consult cardiology and monitor closely. Continue current home medications including Pradaxa and amiodarone. 2. Fever, monitor closely. No signs for active infection. UA unremarkable. Will check the procalcitonin level. 3. History of coronary artery disease, as above. 4. History of paroxysmal Afib, as above. 5. Hypertension. Resume home meds. 6. Chronic hyponatremia. Continue salt tablets. Consult nephrology. 7. History of peripheral vascular disease, status post carotid stent. 8. Dyslipidemia, continue home meds. 9. Hypothyroidism, continue home medications. 10. GI and DVT prophylaxes. Continue Pradaxa. Start some Protonix. Dictated by Candice Orta/nirali TD: 05/18/2016 10:18 JOB #: [id number] HISTORY AND PHYSICAL X Nikolai Stuart MD HISTORY AND PHYSICAL
--- NOTE | ~2016-05-17 | A ---
[facility] Nutrition Therapy DATE: 05/18/16 Patient: ANAYELI Weir BILL Physician: JOVANY Address: [address] [facility] Room/Bed: [address] [place] [address], Zip: [place] [address] Admit Date: 05/17/16 Date of : [birth year] Height: 5 0 Weight: 183 83.2 NUTRITIONAL ASSESSMENT: REASON: 5 NUTRITION RISK PT RE: 20# WEIGHT LOSS + PRESSURE ULCER + POOR PO INTAKE, ALSO CONSULT RECEIVED PT IS 75 Y.O. FEMALE ADMITTED FOR FEVER/HEADACHES/ANEMIA PMH: CAD, DM, PVD, HLD, GERD, APPY, ASTHMA, HYPOTHYROIDISM, HTN, COPD Anthropometrics: 5'0", WT: 175# (BEDSIDE), BMI: 34.2 Labs: GLU: 56, NA+:132, CA+:8.0, ALB: 2.1 Meds: VITAMIN B12 + D, LEVEMIR, LIPITOR, NOVOLOG, PROTONIX, FERROUS GLUCONATE, MILK OF MAGNESIA, ZOFRAN, SYNTHROID I/O & Bowel function: 240/375 Skin Integrity: PRESSURE ULCER LOCATED BUTTOCKS Estimated Nutrition Needs: INCREASED NUTRIENT NEEDS 2' POOR PO INTAKE AND APPETITE, CURRENT CONDITION, WEIGHT LOSS NOTED, SKIN BREAKDOWN NOTED Assessment: CHART REVIEWED AND EVENTS NOTED. PT SEEN FOR WEIGHT LOSS + POOR PO INTAKE + PRESSURE ULCER. PT CONFIRMED POOR PO INTAKE 2' DECREASED APPETITE PAST FEW MONTHS. FAMILY AT BEDSIDE REPORTS PT HAS BEEN IN HOSPITAL MULTIPLE TIMES SINCE FEB 2016 AND THAT HAS AFFECTED HER APPETITE. PT REPORTS LOSING ~20# SINCE FEB 2016 (2 MONTHS)/10% SEVERE WEIGHT LOSS NOTED. THIS RD ENCOURAGED SLOW GRADUAL PO INTAKE + SMALL FREQUENT MEALS + SUPPLEMENT INTAKE, PT AGREED TO ENSURE PUDDING BID (PT ON 1000 ML FLUID RESTRICTION). PT AND FAMILY REPORTED NO DIET QUESTIONS AT THIS TIME. RD TO FOLLOW. SEE RECOMMENDATIONS BELOW. Dx: INADEQUATE NUTRIENT INTAKE R/T DX, CURRENT CONDITION, PAST HOSPITAL ADMITS AEB PT AND FAMILY REPORT ABOVE, ~10% SEVERE WEIGHT LOSS NOTED IN PAST 2 MONTHS. Intervention: 1. HH DIET + 1000 ML FLUID RESTRICTION 2. ENSURE PUDDING BID Monitoring, Evaluation and Goals: 1. PO INTAKE; PROVIDE AND CONSUME ADEQUATE NUTRITION W/NO C/O N/V/D (PO>50%) 2. WEIGHTS; PREVENT FURTHER WEIGHT LOSS 3. LABS; WNL; GLU, NA+ 4. GI; PROMOTE REGULAR GI FUNCTION [facility] Nutrition Therapy DATE: 05/18/16 Patient: ANAYELI KHAN Physician: JOVANY Address: [address] [facility] Room/Bed: [address] [place] [address], Zip: [place] [address] Admit Date: 05/17/16 Date of : [birth year] Height: 5 0 Weight: 183 83.2 MONITOR: -PO INTAKE/APPETITE/DIET CHANGE -SUPPLEMENT INTAKE -WEIGHTS -SUPPLEMENT INTAKE Recommendations: 1. PLEASE ORDER EFREN ENSURE PUDDING BID W/MEALS 2. RECOMMEND TO CHANGE CURRENT DIET ORDER TO REGULAR IF CONTINUED MINIMAL PO INTAKE 3. APPRECIATE FAMILY AND STAFF TO ENCOURAGE ADEQUATE KCAL AND PROTEIN INTAKE RD WILL F/U PER PROTOCOL PT IS MODERATELY COMPROMISED Respectfully, PJ DAMON MS, RD, LD Food and Nutritional Services [facility] cc: client file
--- NOTE | ~2016-05-17 | CT57 ---
[facility] A Service of [facility] RADIOLOGY TEXT RESULTS PATIENT: ANAYELI KHAN LOCATION: [facility] : 39 UNIT #: [id number] AGE: [address]: Nikolai Stuart MD SEX: F ORDER DR: [id number] [facility] [address] [facility]. [place], [place] [address] [id number] I MR#: [id number] Acc #: [id number] NAME: ANAYELI KHAN. : 1940 SEX: F STUDY DATE/TIME: 05/24/2016 16:07 UNIT: [address] ROOM: [facility] STUDY DESCRIPTION: CT Chest Wo Cont Attending Physician: Nikolai Stuart M.D. Ordering Physician: Nikolai Stuart M.D. Primary Care Physician: Andrés Darby M.D. MEDICAL IMAGING REPORT This report is preliminary unless electronic signature is present EXAM CT scan of the chest without contrast HISTORY Decreased appetite since 05/14/2016 with fever and anemia. Evaluate for pneumonia. COMPARISON 03/04/2016 TECHNIQUE Axial 5 mm images were obtained through the chest without IV contrast. This CT exam was performed with one or more of the following radiation dose reduction techniques: automatic exposure control, adjustment of mA and/or kV according to patient size, and iterative reconstruction. FINDINGS There is minimal atelectasis in the lingula. There are no nodules or focal infiltrates. The thyroid gland shows multiple calcifications and small nodules. The aorta is normal in size. Visualized portions of the upper abdomen are unremarkable. Bones are unremarkable. IMPRESSION 1. There is no evidence of pneumonia. 2. Thyroid gland is abnormal with multiple small calcified nodules. 3. Otherwise, the study is negative. Dictated by... Fernando Thomas M.D. [facility] A Service [facility] RADIOLOGY TEXT RESULTS PATIENT: ANAYELI KHAN LOCATION: [facility] : 39 UNIT #: [id number] AGE: [address]: Nikolai Stuart MD SEX: F ORDER DR: THIS IS AN ELECTRONICALLY VERIFIED REPORT Fernando Thomas M.D. at 05/25/2016 11:20 AM KAREN/benoit TD: 05/25/2016 10:58 JOB #: [id number] MEDICAL IMAGING REPORT COPY
--- NOTE | ~2016-05-17 | CO ---
Unit #: [id number] #: [id number] Patient: ANAYELI KHAN [id number] [facility] [address] [facility]. [place], [place] [address] [id number] I MR#: [id number] NAME: ANAYELI KHAN ROOM: 339 Age: 75 Sex: F Admission Date: 05/17/2016 : 1940 Attending Physician: Nikolai Stuart M.D. Primary Care Physician: Andrés Darby M.D. Consultation Date: 05/23/2016 CONSULTATION REPORT REASON FOR CONSULTATION Followup. DISCUSSION Ms. Sanford is a 75-year-old white female, seen in room 339, bed 1, at [facility] on 05/23/2016. The patient was pleasant and cooperative and reports that she had a good night and able to sleep good. The patient reports her anxiety was under control. The patient denied any side effects from medication. The patient's CT scan showed [id number]-[id number] parenchymal atrophy consistent with symptoms of dementia. The patient was pleasant and cooperative. Denied any psychotic symptom. Reports mood is better, but denied any complaints. REVIEW OF SYSTEMS Complete review of systems is unremarkable. MENTAL STATUS EXAMINATION General appearance, the patient dressed casually and lying comfortably in bed. Attention span and concentration, fair. Speech, regular rate. Oriented in place and person. Mood and affect were sad, dysphoric, and anxious. Thought process, circumstantial. Thought content, the patient denied any thoughts of harming self or others or any psychotic symptom. Recent and remote memory, fair to poor. Language, able to name object. Fund of knowledge, fair. Insight and judgment, fair to slightly impaired. DIAGNOSES Psychiatric: Major depressive disorder, recurrent, F33.2 and probable major neurocognitive disorder secondary to Alzheimer disease without behavioral disturbances, F02.80. ASSESSMENT/PLAN 1. Supportive psychotherapy and psychoeducation provided to the patient. 2. Educated about benefits and side effects of medication and course and prognosis of illness. Advised to continue with current medication. If needed, consider change. The patient is currently on Remeron, Aricept, and Xanax. We will continue to follow. Dictated by... Fernando Morales M.D. ROSEANNA/rajni TD: 05/24/2016 17:55 Unit #: [id number] #: [id number] Patient: ANAYELI KHAN JOB #: [id number] CONSULTATION REPORT X Fernando Morales MD CONSULTATION REPORT
--- NOTE | ~2016-05-17 | EKG ---
PATIENT: ANAYELI KHAN UNIT #: [id number] Ventricular Rate: 96 BPM Atrial Rate: 96 BPM P-R Interval: 160 ms QRS Duration: 86 ms Q-T Interval: 408 ms QTC Calculation(Bezet): 515 ms P [place]: 59 degrees Calculated R Bishop: 49 degrees Calculated T Bishop: 138 degrees Diagnosis Line: Normal sinus rhythm Diagnosis Line: Cannot rule out Anterior infarct (cited on or Diagnosis Line: before 30-APR-2016) Diagnosis Line: T wave abnormality, consider anterolateral Diagnosis Line: ischemia Diagnosis Line: Prolonged QT Diagnosis Line: Abnormal ECG Diagnosis Line: When compared with ECG of 30-APR-2016 21:57, Diagnosis Line: Premature atrial complexes are no longer Present Diagnosis Line: Serial changes of Anterior infarct Present Diagnosis Line: Confirmed by JACK MIRELES, SILVIA ([id number]) on 05/17/2016 Diagnosis Line: 5:33:32 PM INTERPRETING MD: JACK MIRELES
--- NOTE | ~2016-05-17 | OR ---
Unit #: [id number] #: [id number] Patient: ANAYELI KHAN [id number] [address] [address] [id number] López MR#: [id number] NAME: ANAYELI KHAN ROOM: [facility] Date of Procedure: 05/31/2016 Admission Date: 05/17/2016 Surgeon: Dann Marley III, M.D. : 1940 Attending Physician: Nikolai Stuart M.D. Primary Care Physician: Andrés Darby M.D. OPERATIVE REPORT PREOPERATIVE DIAGNOSIS Fevers of unknown origin. POSTOPERATIVE DIAGNOSIS Fevers of unknown origin. PROCEDURE PERFORMED Left temporal artery biopsy. ANESTHESIA General. SPECIMEN Temporal artery to Pathology. COMPLICATIONS None apparent. ESTIMATED BLOOD LOSS Minimal. INDICATIONS FOR PROCEDURE This is a 75-year-old lady, who has had an extensive workup for fevers of unknown origin. She is here today for temporal artery biopsy. DESCRIPTION OF PROCEDURE After consent was obtained, the patient was brought to the operating room and placed in the supine position. General anesthetic was administered. Her left temporal area was prepped and draped in standard surgical fashion. I used a Doppler probe to identify the location of the left temporal artery. I then made an incision overlying this area. I dissected down and was able to identify the temporal artery. I dissected out approximately 1 inch of the temporal artery. I placed 3-0 silk ties proximally and distally. I then excised a piece that measured eventually approximately 3/4 of an inch. This was sent to Pathology. I had excellent hemostasis, and I closed the skin edges with a running 4-0 Vicryl subcuticular suture. Steri-Strips were then applied. The patient tolerated the procedure without any problems and returned to the recovery room in stable condition. Dictated by... Unit #: [id number] #: [id number] Patient: ANAYELI KHAN Dann Marley III, M.D. VCL/modl TD: 06/02/2016 00:30 JOB #: [id number] OPERATIVE REPORT X Dann Marley III, MD PROCEDURE OPERATIVE NOTE
--- NOTE | ~2016-05-17 | FU ---
[facility] Nutrition Therapy DATE: 05/29/16 Patient: ANAYELI Weir BILL Physician: JOVANY Address: [address] [place] [address] Room/Bed: [address] [place] [address], Zip: [place] [address] Admit Date: 05/17/16 Date of : 39 Height: 5 0 Weight: 190 86.4 NUTRITION MONITORING/FOLLOW-UP: Reason: Nutrition follow up Anthropometrics: Labs: Meds: I&O's: Skin: Estimated Nutrition Needs: Assessment: Dx: Intervention: Monitoring, Evaluation and Goals: Recommendations: Status: Respectfully, JAGDISH URRUTIA RD, LD Food and Nutritional Services [facility] cc: client file
--- NOTE | ~2016-05-17 | EKG ---
PATIENT: ANAYELI KHAN UNIT #: [id number] Ventricular Rate: 66 BPM Atrial Rate: 66 BPM P-R Interval: 166 ms QRS Duration: 86 ms Q-T Interval: 508 ms QTC Calculation(Bezet): 532 ms P [place]: 43 degrees Calculated R [place]: 32 degrees Calculated T [place]: 130 degrees Diagnosis Line: Normal sinus rhythm Diagnosis Line: T wave abnormality, consider anterolateral Diagnosis Line: ischemia Diagnosis Line: Prolonged QT Diagnosis Line: Abnormal ECG Diagnosis Line: When compared with ECG of 17-MAY-2016 13:48, Diagnosis Line: No significant change was found Diagnosis Line: Confirmed by SILVIA SANTIAGO MD ([id number]) on 05/20/2016 Diagnosis Line: 7:02:59 AM INTERPRETING MD: JACK MIRELES
--- NOTE | ~2016-05-17 | DS ---
Unit #: [id number] #: [id number] Patient: ANAYELI KHAN [id number] [address] [address] [id number] I MR#: [id number] NAME: ANAYELI KHAN. ROOM: 339 Age: 75 Sex: F Admission Date: 05/17/2016 : 1940 Discharge Date: 06/04/2016 Attending Physician: Nikolai Stuart M.D. Primary Care Physician: Andrés Darby M.D. DISCHARGE SUMMARY DISCHARGE DIAGNOSES 1. Fever of unknown origin, likely rheumatological etiology per Infections Disease. 2. Likely delayed transfusion reaction per newspaper manager. 3. Anemia. 4. Thrombocytopenia. 5. Near syncope, one episode, which has improved. 6. Paroxysmal atrial fibrillation. 7. Peripheral vascular disease. 8. Coronary artery disease. 9. Hyponatremia. 10. Diabetes mellitus type 2. 11. Chronic obstructive pulmonary disease. 12. Hypertension. 13. Hypothyroidism. 14. Peripheral vascular disease, status post right carotid arterial stent. LABORATORY WORKUP ON DISCHARGE Sodium 135, potassium 4.0, chloride 92, BUN 16, creatinine 0.4, WBC 4.9, hemoglobin 10.1, hematocrit 30.1 and platelet count of 123. Occult blood in the stool was positive. Blood culture during hospitalization was negative. Haptoglobin less than 15. C-reactive protein 6.2 which is elevated. TSH 2.21 in normal range. DISCHARGE MEDICATIONS 1. Mini-neb treatment with albuterol and ipratropium q.i.d. 2. Symbicort 160/4.5 two puffs b.i.d. 3. Prednisone 30 mg p.o. daily. 4. Tylenol 500 mg q.6 h. p.r.n. 5. Pradaxa 150 mg b.i.d. 6. Remeron 15 mg q.h.s. 7. Fenofibrate 67 mg daily. 8. Lipitor 20 mg q.h.s. 9. Levemir 25 units subcu daily. 10. NovoLog 12 units subcu t.i.d. with meals. 11. Ferrous gluconate 325 mg b.i.d. 12. Zofran 4 mg p.o. q.4 h. p.r.n. 13. Xanax 0.25 mg b.i.d. 14. Coreg 3.125 mg b.i.d. 15. Aricept 5 mg daily. 16. Bumex 1 mg daily. 17. Aspirin 81 mg daily. Unit #: [id number] #: [id number] Patient: ANAYELI KHAN 18. Ultram 50 mg q.4 h. p.r.n. 19. Protonix 40 mg daily. 20. Sodium chloride 1 g p.o. b.i.d. 21. Synthroid 50 mcg p.o. daily. 22. Nitroglycerin 0.4 mg sublingual p.r.n. for chest pain. 23. Vitamin B12 2000 mcg p.o. daily and 50,000 units subcu weekly for six weeks. 24. Fluid restriction 1300 mL per 24 hours. DIAGNOSTIC STUDIES Multiple workups were done and investigation done for fever of unknown origin which included: 1. Bone marrow biopsy which was done by Dr. Hernandez on 05/31/2016. 2. Gallium scan was done which as negative for any abscess. 3. CT scan of the abdomen and pelvis was done which shows no acute finding in the abdomen or pelvic. Moderate-sized rectocele was present. Left inguinal hernia is present. 4. CT scan of the chest done which shows no evidence of pneumonia. Thyroid gland is abnormal with multiple small calcified nodules, otherwise the study is negative. 5. CT scan of the head, no acute intracranial finding. 6. EGD and colonoscopy were done on 06/04/16. EGD shows gastritis and colonoscopy shows poor prep. No sign of recent bleed. CONSULTATIONS DURING HOSPITALIZATION 1. Dr. Houston and Dr. Agarwal from infectious disease. 2. Dr. Marley, for bone higuera biopsy, from [facility]. 3. Dr. Fernando Morales from psych services. 4. Dr. Hardy Mock for hematology services. 5. Dr. Yuen from renal services. 6. International Recruiter, Dr. Mirza. HOSPITAL COURSE Patient has had a very lengthy stay. She was admitted on May 17, 2016 for fever. We have done multiple investigations. There was no cause of fever. Patient did receive antibiotic in the beginning which was stopped by ID. Gallium scan was done which showed no abscess. Bone marrow biopsy was done. Preliminary result is hypercellular bone marrow with trilineage hematopiesis identified with suggestion of erythroid hyperplasia. Temporal artery biopsy was also done which seems to be stable. Patient was started on steroid as per Infectious Disease and the patient's fever has resolved. Patient has been afebrile for last 48 hours or so. Patient is being discharged to rehab facility to continue care. Patient will need to see a rheumatology service as outpatient to decide whether there is any (1) disease. We do not have any rheumatologists in our facility. Patient will need to see newspaper manager also for anemia and thrombocytopenia. Patient does have history of paroxysmal atrial fibrillation. Amiodarone was discontinued as per Dr. Mirza's recommendation. Beta blockers were continued and anticoagulation therapy was continued. Hyponatremia: The patient is on sodium chloride tablets and also patient Unit #: [id number] #: [id number] Patient: ANAYELI KHAN needs to be on fluid restriction. She does have chronic hyponatremia possibly secondary to SIADH. Coronary artery disease which is stable; patient is asymptomatic. Diabetes mellitus: Patient is on insulin therapy. Continue same medication at this time. She seems to be stable. COPD which is stable. Continue nebulizer treatments. Hypothyroidism: Patient is on Synthroid. TSH level was done during hospitalization which was normal. Hyperlipidemia: Patient is on Lipitor therapy, continue same. PHYSICAL EXAMINATION ON DISCHARGE VITAL SIGNS: Blood pressure is 130/98. Respiratory rate 20. Pulse is 85. Temperature 98.7. CHEST: Chest has fair air entry. CVS: S1, S2 positive, regular. ABDOMEN: Abdomen is Soft. DISCHARGE INSTRUCTIONS 1. Patient needs to follow with primary care provider in one week if discharged home. 2. Follow up with Dr. Mock in two to three weeks. 3. PT and OT. 4. Patient needs to be seen by file system installer as outpatient. I have discussed with the patient's daughter about plan of care. She does verbalize understanding. Dictated by... Lindy Gonzalez M.D. Erwin TD: 06/04/2016 15:03 JOB #: [id number] DISCHARGE SUMMARY X Lindy Gonzalez MD SUMMARY
[~2016-05-17 13:16] MED LIST: ACETAMINOPHEN PO; ALDACTONE25 MG PO; ALPRAZOLAM0.5 MG PO; AMIODARONE PO; AMLODIPINE BESY10 MG PO; ASPIRIN EC81 M1 PO; ASPIRIN81 M2 PO; ASPIRIN81 MG PO; ATENOLOL50 MG PO; ATIVAN PO; AZITHROMYCIN500 MG PO; B-121000 MC1 PO; BUMEX2 MG PO; CLARITIN10 M2 PO; CLOPIDOGREL75 MG PO; COMBIVENT U/D3 M1 INH; COREG3.125 MG PO; COZAAR100 MG PO; DESYREL50 MG PO; DULOXETINE HCL60 M1 PO; DULOXETINE HCL60 MG PO; FENOFIBRATE67 MG PO; FUROSEMIDE40 MG PO; HYDROXYZINE HCL25 M1 PO; KCL PO; KLOR-CON PO; LASIX20 MG PO; LEVEMIR100 UNITS/ SUBQ; LEVOTHYROXINE50 MCG PO; LIPITOR20 MG PO; LOSARTAN POTASS50 MG PO; METFORMIN HCL500 M1 PO; NAPROXEN PO; NIACIN ER750 MG PO; NITROSTAT0.4 MG SL; NORVASC PO; NOVOLIN 70/30 V10 M1 SUBQ; NOVOLIN 70100 UNITS/ SUBQ; NOVOLOG100 U/M1 SUBQ; NOVOLOG7030 SQ; PLAVIX PO; PRADAXA150 MG PO; PRAVASTATIN SOD40 MG PO; PRAVASTATIN SOD80 MG PO; PREDNISONE PO; PROTONIX PO; RANITIDINE HCL300 MG PO; SYMBICORT 160/4.6 GM INH; SYMBICORT INH; SYNTHROID0.05 MG PO; SYNTHROID25 MCG PO; TYLENOL325 M1 PO; VITAMIN B122500 MCG PO; VITAMIN D250000 UNIT PO; VITAMIN D50000 UNIT PO
[2016-05-17 13:52] LABS: INFLUENZA A NEG (NEG); INFLUENZA B NEG (NEG)
[2016-05-17 14:38] LABS: BASOPHIL# 0.1 X10e3 (0-0.3); BASOPHIL% 1.2 % (0-2.5); HEMATOCRIT 29.5 % (35.0-45.0); HEMOGLOBIN 9.9 gm/dL (12.0-16.0); LYMPHOCYTE# 0.7 X10e3 (1.0-3.5); LYMPHOCYTE% 17.2 % (17.0-45.0); MEAN CELL VOLUME 92.5 FL (83-96); MEAN CORPUSCULAR HGB CONC 33.5 g/dL (30-36); MEAN PLATELET VOLUME 8.2 FL (6.5-11.5); MONOCYTE# 0.8 X10e3 (0-1.0); MONOCYTE% 19.4 % (3.0-12.0); NEUTROPHIL# 2.7 X10e3 (1.5-7.1); NEUTROPHIL% 62.2 % (40-75); PLATELET COUNT 107 X10e3 (140-420); RED BLOOD COUNT 3.19 X10e (3.90-5.30); RED CELL DISTRIBUTION WIDTH 21.1 % (11.0-15.5); WHITE BLOOD COUNT 4.3 X10e3 (4.0-10.5)
[2016-05-17 14:39] LABS: DIFF IND YES
[2016-05-17 15:02] LABS: URINE SOURCE CLEAN CATCH
[2016-05-17 15:03] LABS: ALBUMIN SERUM 2.3 g/dL (3.5-5.0); ALKALINE PHOSPHATASE 99 U/L (32-92); ALT (SGPT) 23 U/L (10-40); AMYLASE 18 U/L (0-46); AST (SGOT) 48 U/L (10-42); BILIRUBIN, DIRECT 0.3 mg/dL (0.0-0.2); BILIRUBIN,INDIRECT 0.5 mg/dL (0.0-0.9); BILIRUBIN,TOTAL 0.8 mg/dL (0.2-2.0); BLOOD UREA NITROGEN 20 mg/dL (9-23); CALCIUM SERUM 7.8 mg/dL (8.4-10.2); CARBON DIOXIDE 29 mmol/L (22-31); CHLORIDE 88 mmol/L (100-111); CREATININE SERUM 0.8 mg/dL (0.6-1.4); GLOM FILT RATE Estimated ABOVE60 mL/min (>60); GLUCOSE FASTING 273 mg/dL (70-110); LIPASE 18 U/L (22-51); MAGNESIUM 1.9 mg/dL (1.6-3.0); POTASSIUM 4.2 mmol/L (3.5-5.1); PROTEIN TOTAL SERUM 5.4 g/dL (6.0-8.3); SODIUM 127 mmol/L (135-145)
[2016-05-17 15:16] LABS: INR 1.4; PARTIAL THROMBOPLASTIN TIME 50.4 SECONDS (23.5-31.3); PROTHROMBIN TIME (PATIENT) 14.8 SECONDS (9.6-11.5)
[2016-05-17 15:19] LABS: POC - CKMB <1.0 ng/mL (0.0-7.9); POC - TROPONIN <0.05 ng/mL (<=0.05)
[2016-05-17 15:34] LABS: ANISOCYTOSIS MOD; PLATELET ESTIMATE NORMAL (NORMAL)
[2016-05-17 16:07] LABS: URINE APPEARANCE CLEAR; URINE BILIRUBIN NEG (NEG); URINE BLOOD NEG (NEG); URINE COLOR YELLOW; URINE GLUCOSE >1000 MG/DL (NEG); URINE KETONE NEG (NEG); URINE LEUKOCYTE ESTERASE NEG (NEG); URINE NITRATE NEG (NEG); URINE PH 6.5 (5-8); URINE PROTEIN NEG (NEG); URINE SPECIFIC GRAVITY 1.014 (1.003-1.035)
[2016-05-17 16:19] LABS: POC - CKMB <1.0 ng/mL (0.0-7.9); POC - TROPONIN <0.05 ng/mL (<=0.05)
[2016-05-17] MEDS ORDERED: IPRAT-ALBUT 0.5-3 ML INH (16:36)
[2016-05-17 16:37] LABS: CULTURE INDICATED? NO
[2016-05-17] MEDS ORDERED: LEVOTHYROXINE50 MCG PO (16:37)
[2016-05-17] MEDS ORDERED: FENOFIBRATE67 MG PO (16:38)
[2016-05-17] MEDS ORDERED: K-LOR20 MEQ PO (16:38)
[2016-05-17] MEDS ORDERED: LOSARTAN POTASS25 MG PO (16:39)
[2016-05-17] MEDS ORDERED: B-121000 MC1 PO (16:40)
[2016-05-17] MEDS ORDERED: AMIODARONE HCL100 MG PO (16:40)
[2016-05-17] MEDS ORDERED: PRADAXA150 MG PO (16:41)
[2016-05-17] MEDS ORDERED: SODIUM CHLORIDE1 GM PO (16:42)
[2016-05-17] MEDS ORDERED: SYMBICORT INH (16:42)
[2016-05-17] MEDS ORDERED: COREG3.125 MG PO (16:43)
[2016-05-17] MEDS ORDERED: BUMEX1 MG PO (16:43)
[2016-05-17] MEDS ORDERED: DULOXETINE HCL60 M1 PO (16:44)
[2016-05-17] MEDS ORDERED: FERROUS GL324 ( 36 ) PO (16:44)
[2016-05-17] MEDS ORDERED: VITAMIN D250000 UNIT PO (16:45)
[2016-05-17] MEDS ORDERED: LIPITOR20 MG PO (16:45)
[2016-05-17] MEDS ORDERED: ASPIRIN81 MG PO (16:45)
[2016-05-17] MEDS ORDERED: MELATONIN5 M1 PO (16:46)
[2016-05-17] MEDS ORDERED: DESYREL50 MG PO (16:46)
[2016-05-17] MEDS ORDERED: ULTRAM PO (16:47)
[2016-05-17] MEDS ORDERED: MILK OF MAGNESIA PO (16:49)
[2016-05-17] MEDS ORDERED: LORAZEPAM1 MG PO (16:49)
[2016-05-17] MEDS ORDERED: ZOFRAN IVP (16:49)
[2016-05-17] MEDS ORDERED: NITROGLYGERIN0.4 MG SL (16:52)
[2016-05-17] MEDS ORDERED: MAPAP500 M1 PO (16:52)
[2016-05-17] MEDS ORDERED: NOVOLOG100 U/ML SUBQ (16:53)
[2016-05-17] MEDS ORDERED: LEVEMIR100 UNITS/ SUBQ (16:54)
[2016-05-17] MEDS ORDERED: SANTYL15 G1 TOP (16:55)
[2016-05-18 06:03] LABS: BASOPHIL# 0.1 X10e3 (0-0.3); BASOPHIL% 1.3 % (0-2.5); EOSINOPHIL% 0.3 % (0.0-7.0); HEMATOCRIT 28.1 % (35.0-45.0); HEMOGLOBIN 9.7 gm/dL (12.0-16.0); LYMPHOCYTE% 25.2 % (17.0-45.0); MEAN CELL VOLUME 92.6 FL (83-96); MEAN CORPUSCULAR HEMOGLOBIN 31.9 PG (28-34); MEAN CORPUSCULAR HGB CONC 34.4 g/dL (30-36); MEAN PLATELET VOLUME 8.2 FL (6.5-11.5); MONOCYTE# 0.7 X10e3 (0-1.0); MONOCYTE% 17.5 % (3.0-12.0); NEUTROPHIL# 2.1 X10e3 (1.5-7.1); NEUTROPHIL% 55.7 % (40-75); PLATELET COUNT 93 X10e3 (140-420); RED BLOOD COUNT 3.03 X10e (3.90-5.30); WHITE BLOOD COUNT 3.9 X10e3 (4.0-10.5)
[2016-05-18 06:06] LABS: DIFF IND NO
[2016-05-18 06:34] LABS: ALBUMIN SERUM 2.1 g/dL (3.5-5.0); ALKALINE PHOSPHATASE 87 U/L (32-92); ALT (SGPT) 19 U/L (10-40); AST (SGOT) 42 U/L (10-42); BILIRUBIN,TOTAL 0.7 mg/dL (0.2-2.0); BLOOD UREA NITROGEN 18 mg/dL (9-23); BUN/CREATININE RATIO 25.71; CARBON DIOXIDE 30 mmol/L (22-31); CHLORIDE 94 mmol/L (100-111); CREATININE SERUM 0.7 mg/dL (0.6-1.4); GLOM FILT RATE Estimated ABOVE60 mL/min (>60); GLUCOSE FASTING 56 mg/dL (70-110); POTASSIUM 3.5 mmol/L (3.5-5.1); PROTEIN TOTAL SERUM 5.3 g/dL (6.0-8.3); SODIUM 132 mmol/L (135-145)
[2016-05-18 06:46] LABS: PROCALCITONIN 0.21 NG/ML
[2016-05-19 05:47] LABS: BASOPHIL% 1.1 % (0-2.5); DIFF IND NO; EOSINOPHIL% 0.1 % (0.0-7.0); HEMATOCRIT 27.9 % (35.0-45.0); HEMOGLOBIN 9.5 gm/dL (12.0-16.0); LYMPHOCYTE% 23.9 % (17.0-45.0); MEAN CELL VOLUME 93.2 FL (83-96); MEAN CORPUSCULAR HEMOGLOBIN 31.7 PG (28-34); MEAN PLATELET VOLUME 8.6 FL (6.5-11.5); MONOCYTE# 0.9 X10e3 (0-1.0); MONOCYTE% 20.1 % (3.0-12.0); NEUTROPHIL# 2.4 X10e3 (1.5-7.1); NEUTROPHIL% 54.8 % (40-75); PLATELET COUNT 111 X10e3 (140-420); RED BLOOD COUNT 2.99 X10e (3.90-5.30); WHITE BLOOD COUNT 4.3 X10e3 (4.0-10.5)
[2016-05-19 06:32] LABS: BLOOD UREA NITROGEN 17 mg/dL (9-23); BUN/CREATININE RATIO 24.28; CALCIUM SERUM 8.3 mg/dL (8.4-10.2); CARBON DIOXIDE 33 mmol/L (22-31); CHLORIDE 89 mmol/L (100-111); CREATININE SERUM 0.7 mg/dL (0.6-1.4); GLOM FILT RATE Estimated ABOVE60 mL/min (>60); GLUCOSE FASTING 302 mg/dL (70-110); POTASSIUM 4.7 mmol/L (3.5-5.1); SODIUM 131 mmol/L (135-145)
[2016-05-20 06:50] LABS: HEMATOCRIT 27.8 % (35.0-45.0); HEMOGLOBIN 9.5 gm/dL (12.0-16.0); MEAN CELL VOLUME 92.8 FL (83-96); MEAN CORPUSCULAR HEMOGLOBIN 31.7 PG (28-34); MEAN CORPUSCULAR HGB CONC 34.2 g/dL (30-36); MEAN PLATELET VOLUME 8.7 FL (6.5-11.5); RED CELL DISTRIBUTION WIDTH 21.8 % (11.0-15.5); WHITE BLOOD COUNT 4.4 X10e3 (4.0-10.5)
[2016-05-20 07:30] LABS: BLOOD UREA NITROGEN 22 mg/dL (9-23); BUN/CREATININE RATIO 24.44; CALCIUM SERUM 8.3 mg/dL (8.4-10.2); CARBON DIOXIDE 30 mmol/L (22-31); CHLORIDE 93 mmol/L (100-111); CREATININE SERUM 0.9 mg/dL (0.6-1.4); GLOM FILT RATE Estimated ABOVE60 mL/min (>60); GLUCOSE FASTING 220 mg/dL (70-110); SODIUM 132 mmol/L (135-145)
[2016-05-20 23:59] LABS: BASOPHIL# 0.1 X10e3 (0-0.3); BASOPHIL% 1.1 % (0-2.5); DIFF IND YES; EOSINOPHIL% 0.1 % (0.0-7.0); HEMATOCRIT 28.3 % (35.0-45.0); HEMOGLOBIN 9.5 gm/dL (12.0-16.0); LYMPHOCYTE# 1.3 X10e3 (1.0-3.5); LYMPHOCYTE% 24.2 % (17.0-45.0); MEAN CELL VOLUME 91.8 FL (83-96); MEAN CORPUSCULAR HGB CONC 33.7 g/dL (30-36); MEAN PLATELET VOLUME 8.4 FL (6.5-11.5); MONOCYTE% 18.4 % (3.0-12.0); NEUTROPHIL# 2.9 X10e3 (1.5-7.1); NEUTROPHIL% 56.2 % (40-75); PLATELET COUNT 104 X10e3 (140-420); RED BLOOD COUNT 3.08 X10e (3.90-5.30); RED CELL DISTRIBUTION WIDTH 22.2 % (11.0-15.5); WHITE BLOOD COUNT 5.2 X10e3 (4.0-10.5)
[2016-05-21 00:19] LABS: ANISOCYTOSIS MOD; PLATELET ESTIMATE DECREASED (NORMAL)
[2016-05-21 09:00] LABS: HEMATOCRIT 25.2 % (35.0-45.0); HEMOGLOBIN 8.6 gm/dL (12.0-16.0); MEAN CELL VOLUME 92.6 FL (83-96); MEAN CORPUSCULAR HEMOGLOBIN 31.5 PG (28-34); MEAN PLATELET VOLUME 8.7 FL (6.5-11.5); RED BLOOD COUNT 2.72 X10e (3.90-5.30); RED CELL DISTRIBUTION WIDTH 22.3 % (11.0-15.5); WHITE BLOOD COUNT 4.4 X10e3 (4.0-10.5)
[2016-05-21 09:55] LABS: BLOOD UREA NITROGEN 24 mg/dL (9-23); BUN/CREATININE RATIO 34.28; CARBON DIOXIDE 31 mmol/L (22-31); CHLORIDE 95 mmol/L (100-111); CREATININE SERUM 0.7 mg/dL (0.6-1.4); GLOM FILT RATE Estimated ABOVE60 mL/min (>60); GLUCOSE FASTING 213 mg/dL (70-110); POTASSIUM 4.5 mmol/L (3.5-5.1); SODIUM 132 mmol/L (135-145)
[2016-05-22 12:40] LABS: BLOOD UREA NITROGEN 25 mg/dL (9-23); BUN/CREATININE RATIO 31.25; CALCIUM SERUM 7.7 mg/dL (8.4-10.2); CARBON DIOXIDE 30 mmol/L (22-31); CHLORIDE 96 mmol/L (100-111); CREATININE SERUM 0.8 mg/dL (0.6-1.4); GLOM FILT RATE Estimated ABOVE60 mL/min (>60); GLUCOSE FASTING 220 mg/dL (70-110); POTASSIUM 3.6 mmol/L (3.5-5.1); SODIUM 130 mmol/L (135-145)
[2016-05-22 21:07] LABS: ANA SCREEN Negative (Negative)
[2016-05-23 05:46] LABS: HEMATOCRIT 25.5 % (35.0-45.0); HEMOGLOBIN 8.6 gm/dL (12.0-16.0); MEAN CORPUSCULAR HEMOGLOBIN 31.4 PG (28-34); MEAN CORPUSCULAR HGB CONC 33.8 g/dL (30-36); MEAN PLATELET VOLUME 8.9 FL (6.5-11.5); RED BLOOD COUNT 2.74 X10e (3.90-5.30); RED CELL DISTRIBUTION WIDTH 22.9 % (11.0-15.5); WHITE BLOOD COUNT 4.6 X10e3 (4.0-10.5)
[2016-05-23 06:32] LABS: BLOOD UREA NITROGEN 20 mg/dL (9-23); BUN/CREATININE RATIO 28.57; CALCIUM SERUM 7.6 mg/dL (8.4-10.2); CARBON DIOXIDE 31 mmol/L (22-31); CHLORIDE 95 mmol/L (100-111); CREATININE SERUM 0.7 mg/dL (0.6-1.4); GLOM FILT RATE Estimated ABOVE60 mL/min (>60); GLUCOSE FASTING 242 mg/dL (70-110); POTASSIUM 4.3 mmol/L (3.5-5.1); SODIUM 131 mmol/L (135-145)
[2016-05-24 08:09] LABS: BASOPHIL# 0.1 X10e3 (0-0.3); BASOPHIL% 1.2 % (0-2.5); EOSINOPHIL% 0.2 % (0.0-7.0); HEMATOCRIT 29.2 % (35.0-45.0); HEMOGLOBIN 9.6 gm/dL (12.0-16.0); LYMPHOCYTE# 1.1 X10e3 (1.0-3.5); LYMPHOCYTE% 25.1 % (17.0-45.0); MEAN CORPUSCULAR HEMOGLOBIN 31.3 PG (28-34); MEAN PLATELET VOLUME 8.9 FL (6.5-11.5); MONOCYTE# 1.2 X10e3 (0-1.0); MONOCYTE% 27.1 % (3.0-12.0); NEUTROPHIL% 46.4 % (40-75); PLATELET COUNT 78 X10e3 (140-420); RED BLOOD COUNT 3.07 X10e (3.90-5.30); RED CELL DISTRIBUTION WIDTH 23.2 % (11.0-15.5); WHITE BLOOD COUNT 4.4 X10e3 (4.0-10.5)
[2016-05-24 08:11] LABS: DIFF IND YES
[2016-05-24 08:35] LABS: PLATELET ESTIMATE DECREASED (NORMAL)
[2016-05-24 08:51] LABS: BLOOD UREA NITROGEN 20 mg/dL (9-23); CALCIUM SERUM 8.3 mg/dL (8.4-10.2); CARBON DIOXIDE 31 mmol/L (22-31); CHLORIDE 97 mmol/L (100-111); CREATININE SERUM 0.8 mg/dL (0.6-1.4); GLOM FILT RATE Estimated ABOVE60 mL/min (>60); GLUCOSE FASTING 247 mg/dL (70-110); POTASSIUM 3.9 mmol/L (3.5-5.1); SODIUM 136 mmol/L (135-145)
[2016-05-25 06:22] LABS: URINE SOURCE CLEAN CATCH
[2016-05-25 06:40] LABS: URINE APPEARANCE CLEAR; URINE BILIRUBIN NEG (NEG); URINE BLOOD NEG (NEG); URINE COLOR YELLOW; URINE GLUCOSE >1000 MG/DL (NEG); URINE KETONE NEG (NEG); URINE LEUKOCYTE ESTERASE NEG (NEG); URINE NITRATE NEG (NEG); URINE PH 6.5 (5-8); URINE PROTEIN 1+ (NEG); URINE SPECIFIC GRAVITY 1.027 (1.003-1.035); URINE UROBILINOGEN 0.2 MG/DL (NEG)
[2016-05-25 06:43] LABS: CULTURE INDICATED? YES; URBCS1 AUWI 0-2 /[HPF] (0-2); URINE BACTERIA AUWI NEG (NEGATIVE); URINE SQUAMOUS EPITHELIAL CELL FEW /[HPF]
[2016-05-25 06:59] LABS: URINE YEAST PRESENT
[2016-05-25 10:30] LABS: HEMATOCRIT 29.8 % (35.0-45.0); HEMOGLOBIN 9.9 gm/dL (12.0-16.0); MEAN CELL VOLUME 93.6 FL (83-96); MEAN CORPUSCULAR HEMOGLOBIN 31.2 PG (28-34); MEAN CORPUSCULAR HGB CONC 33.3 g/dL (30-36); MEAN PLATELET VOLUME 8.9 FL (6.5-11.5); RED BLOOD COUNT 3.18 X10e (3.90-5.30); RED CELL DISTRIBUTION WIDTH 23.3 % (11.0-15.5); WHITE BLOOD COUNT 5.3 X10e3 (4.0-10.5)
[2016-05-25 11:05] LABS: BLOOD UREA NITROGEN 16 mg/dL (9-23); BUN/CREATININE RATIO 22.85; CALCIUM SERUM 8.2 mg/dL (8.4-10.2); CARBON DIOXIDE 27 mmol/L (22-31); CHLORIDE 98 mmol/L (100-111); CREATININE SERUM 0.7 mg/dL (0.6-1.4); GLOM FILT RATE Estimated ABOVE60 mL/min (>60); GLUCOSE FASTING 233 mg/dL (70-110); POTASSIUM 3.9 mmol/L (3.5-5.1); SODIUM 131 mmol/L (135-145)
[2016-05-26 06:42] LABS: BLOOD UREA NITROGEN 18 mg/dL (9-23); BUN/CREATININE RATIO 25.71; CARBON DIOXIDE 30 mmol/L (22-31); CHLORIDE 96 mmol/L (100-111); CREATININE SERUM 0.7 mg/dL (0.6-1.4); GLOM FILT RATE Estimated ABOVE60 mL/min (>60); GLUCOSE FASTING 219 mg/dL (70-110); SODIUM 132 mmol/L (135-145)
[2016-05-27 09:39] LABS: BLOOD UREA NITROGEN 15 mg/dL (9-23); CALCIUM SERUM 7.9 mg/dL (8.4-10.2); CARBON DIOXIDE 31 mmol/L (22-31); CHLORIDE 94 mmol/L (100-111); CREATININE SERUM 0.6 mg/dL (0.6-1.4); GLOM FILT RATE Estimated ABOVE60 mL/min (>60); GLUCOSE FASTING 170 mg/dL (70-110); POTASSIUM 3.6 mmol/L (3.5-5.1); SODIUM 133 mmol/L (135-145)
[2016-05-28 06:48] LABS: BLOOD UREA NITROGEN 16 mg/dL (9-23); BUN/CREATININE RATIO 17.77; CALCIUM SERUM 7.8 mg/dL (8.4-10.2); CARBON DIOXIDE 29 mmol/L (22-31); CHLORIDE 95 mmol/L (100-111); CREATININE SERUM 0.9 mg/dL (0.6-1.4); GLOM FILT RATE Estimated ABOVE60 mL/min (>60); GLUCOSE FASTING 186 mg/dL (70-110); MAGNESIUM 2.2 mg/dL (1.6-3.0); POTASSIUM 3.8 mmol/L (3.5-5.1); SODIUM 131 mmol/L (135-145)
[2016-05-28 15:54] LABS: MEAN CELL VOLUME 93.2 FL (83-96); MEAN CORPUSCULAR HEMOGLOBIN 31.2 PG (28-34); MEAN CORPUSCULAR HGB CONC 33.5 g/dL (30-36); MEAN PLATELET VOLUME 8.7 FL (6.5-11.5); RED BLOOD COUNT 3.22 X10e (3.90-5.30); RED CELL DISTRIBUTION WIDTH 23.5 % (11.0-15.5); RETICULOCYTE 7.2 % (0.5-2.8); WHITE BLOOD COUNT 4.3 X10e3 (4.0-10.5)
[2016-05-28 16:24] LABS: THYROID STIMULATING HORMONE 2.21 uIU/ml (0.34-5.60)
[2016-05-28 16:31] LABS: FREE THYROXIN (T4) 1.49 ng/dL (0.58-1.64)
[2016-05-29 06:31] LABS: HEMATOCRIT 27.3 % (35.0-45.0); MEAN PLATELET VOLUME 8.5 FL (6.5-11.5); RED BLOOD COUNT 2.91 X10e (3.90-5.30); WHITE BLOOD COUNT 5.3 X10e3 (4.0-10.5)
[2016-05-29 06:37] LABS: INR 1.2; PARTIAL THROMBOPLASTIN TIME 36.9 SECONDS (23.5-31.3); PROTHROMBIN TIME (PATIENT) 13.2 SECONDS (9.6-11.5)
[2016-05-29 07:43] LABS: BLOOD UREA NITROGEN 14 mg/dL (9-23); CARBON DIOXIDE 28 mmol/L (22-31); CHLORIDE 95 mmol/L (100-111); CREATININE SERUM 0.7 mg/dL (0.6-1.4); GLOM FILT RATE Estimated ABOVE60 mL/min (>60); GLUCOSE FASTING 178 mg/dL (70-110); POTASSIUM 3.9 mmol/L (3.5-5.1); SODIUM 134 mmol/L (135-145)
[2016-05-31 05:14] LABS: INR 1.2; PARTIAL THROMBOPLASTIN TIME 28.4 SECONDS (23.5-31.3); PROTHROMBIN TIME (PATIENT) 12.2 SECONDS (9.6-11.5)
[2016-05-31 06:24] LABS: BLOOD UREA NITROGEN 22 mg/dL (9-23); BUN/CREATININE RATIO 31.42; CALCIUM SERUM 8.1 mg/dL (8.4-10.2); CARBON DIOXIDE 31 mmol/L (22-31); CHLORIDE 94 mmol/L (100-111); CREATININE SERUM 0.7 mg/dL (0.6-1.4); GLOM FILT RATE Estimated ABOVE60 mL/min (>60); GLUCOSE FASTING 316 mg/dL (70-110); MAGNESIUM 2.1 mg/dL (1.6-3.0); POTASSIUM 4.4 mmol/L (3.5-5.1); SODIUM 132 mmol/L (135-145)
[2016-05-31 07:34] LABS: HEMATOCRIT 29.7 % (35.0-45.0); HEMOGLOBIN 9.7 gm/dL (12.0-16.0); MEAN CELL VOLUME 96.4 FL (83-96); MEAN CORPUSCULAR HEMOGLOBIN 31.5 PG (28-34); MEAN CORPUSCULAR HGB CONC 32.7 g/dL (30-36); MEAN PLATELET VOLUME 9.2 FL (6.5-11.5); RED BLOOD COUNT 3.09 X10e (3.90-5.30); RED CELL DISTRIBUTION WIDTH 23.7 % (11.0-15.5); RETICULOCYTE 7.1 % (0.5-2.8); WHITE BLOOD COUNT 3.6 X10e3 (4.0-10.5)
[2016-06-01 05:59] LABS: HEMATOCRIT 28.2 % (35.0-45.0); HEMOGLOBIN 9.3 gm/dL (12.0-16.0); MEAN CELL VOLUME 96.3 FL (83-96); MEAN CORPUSCULAR HEMOGLOBIN 31.8 PG (28-34); MEAN PLATELET VOLUME 8.7 FL (6.5-11.5); RED BLOOD COUNT 2.93 X10e (3.90-5.30); RED CELL DISTRIBUTION WIDTH 23.4 % (11.0-15.5); RETICULOCYTE 8.4 % (0.5-2.8); WHITE BLOOD COUNT 4.5 X10e3 (4.0-10.5)
[2016-06-01 06:24] LABS: BLOOD UREA NITROGEN 20 mg/dL (9-23); BUN/CREATININE RATIO 28.57; CALCIUM SERUM 8.3 mg/dL (8.4-10.2); CARBON DIOXIDE 32 mmol/L (22-31); CHLORIDE 95 mmol/L (100-111); CREATININE SERUM 0.7 mg/dL (0.6-1.4); GLOM FILT RATE Estimated ABOVE60 mL/min (>60); GLUCOSE FASTING 278 mg/dL (70-110); POTASSIUM 4.6 mmol/L (3.5-5.1); SODIUM 133 mmol/L (135-145)
[2016-06-02 06:21] LABS: HEMATOCRIT 28.2 % (35.0-45.0); HEMOGLOBIN 9.4 gm/dL (12.0-16.0); MEAN CELL VOLUME 95.3 FL (83-96); MEAN CORPUSCULAR HEMOGLOBIN 31.8 PG (28-34); MEAN CORPUSCULAR HGB CONC 33.3 g/dL (30-36); MEAN PLATELET VOLUME 8.6 FL (6.5-11.5); RED BLOOD COUNT 2.96 X10e (3.90-5.30); RED CELL DISTRIBUTION WIDTH 23.4 % (11.0-15.5); RETICULOCYTE 8.5 % (0.5-2.8); WHITE BLOOD COUNT 3.9 X10e3 (4.0-10.5)
[2016-06-02 06:50] LABS: ALBUMIN SERUM 2.5 g/dL (3.5-5.0); ALKALINE PHOSPHATASE 67 U/L (32-92); ALT (SGPT) 13 U/L (10-40); AST (SGOT) 22 U/L (10-42); BILIRUBIN,TOTAL 0.6 mg/dL (0.2-2.0); BLOOD UREA NITROGEN 19 mg/dL (9-23); BUN/CREATININE RATIO 27.14; CALCIUM SERUM 8.4 mg/dL (8.4-10.2); CARBON DIOXIDE 32 mmol/L (22-31); CHLORIDE 95 mmol/L (100-111); CREATININE SERUM 0.7 mg/dL (0.6-1.4); GLOM FILT RATE Estimated ABOVE60 mL/min (>60); GLUCOSE FASTING 230 mg/dL (70-110); PROTEIN TOTAL SERUM 5.2 g/dL (6.0-8.3); SODIUM 134 mmol/L (135-145)
[2016-06-03 08:54] LABS: HEMATOCRIT 30.1 % (35.0-45.0); HEMOGLOBIN 10.1 gm/dL (12.0-16.0); MEAN CELL VOLUME 95.2 FL (83-96); MEAN CORPUSCULAR HEMOGLOBIN 31.9 PG (28-34); MEAN CORPUSCULAR HGB CONC 33.5 g/dL (30-36); MEAN PLATELET VOLUME 8.8 FL (6.5-11.5); RED BLOOD COUNT 3.16 X10e (3.90-5.30); RED CELL DISTRIBUTION WIDTH 23.1 % (11.0-15.5); RETICULOCYTE 8.4 % (0.5-2.8); WHITE BLOOD COUNT 4.9 X10e3 (4.0-10.5)
[2016-06-03 09:19] LABS: ALBUMIN SERUM 2.7 g/dL (3.5-5.0); ALKALINE PHOSPHATASE 69 U/L (32-92); ALT (SGPT) 14 U/L (10-40); AST (SGOT) 27 U/L (10-42); BILIRUBIN,TOTAL 0.7 mg/dL (0.2-2.0); BLOOD UREA NITROGEN 19 mg/dL (9-23); BUN/CREATININE RATIO 27.14; CALCIUM SERUM 8.4 mg/dL (8.4-10.2); CARBON DIOXIDE 30 mmol/L (22-31); CHLORIDE 93 mmol/L (100-111); CREATININE SERUM 0.7 mg/dL (0.6-1.4); GLOM FILT RATE Estimated ABOVE60 mL/min (>60); GLUCOSE FASTING 144 mg/dL (70-110); POTASSIUM 3.8 mmol/L (3.5-5.1); PROTEIN TOTAL SERUM 5.2 g/dL (6.0-8.3); SODIUM 133 mmol/L (135-145)
[2016-06-03 14:07] LABS: ASPERGILLUS FLAVUS Negative (Negative); ASPERGILLUS FUMIGATUS Negative (Negative); ASPERGILLUS NIGER Negative (Negative); BLASTOMYCES ANTIBODY Negative (Negative); COCCIDIODES ANTIBODY Negative (Negative); CRYPTOCOCCAL AB <1:2 (()); CRYPTOCOCCAL AG SCREEN SOURCE Serum (()); CRYPTOCOCCAL SCREEN Not Detected (Not Detected); HISTOPLASMA AB Negative (Negative)
[2016-06-04 08:15] LABS: BLOOD UREA NITROGEN 16 mg/dL (9-23); CALCIUM SERUM 8.4 mg/dL (8.4-10.2); CARBON DIOXIDE 33 mmol/L (22-31); CHLORIDE 92 mmol/L (100-111); CREATININE SERUM 0.4 mg/dL (0.6-1.4); GLOM FILT RATE Estimated ABOVE60 mL/min (>60); GLUCOSE FASTING 136 mg/dL (70-110); SODIUM 135 mmol/L (135-145)
[2016-06-04] MEDS ORDERED: DESENEX45 G1 EXT (15:14)
[2016-06-04] MEDS ORDERED: ARICEPT5 M1 PO (15:14)
[2016-06-04] MEDS ORDERED: PROTONIX PO (15:15)
[2016-06-04] MEDS ORDERED: PREDNISONE PO (15:15)
[2016-06-04] MEDS ORDERED: REMERON15 MG PO (15:16)
== END 2016-06-04 17:20 | disposition home health service (06) | DRG 629 ==
LOC: CED 13:16 → CEDOF 17:00 → C3A PCU 19:29
PROVIDERS: Hospitalist; Internal Medicine; Internal Medicine Cardiovascular Disease; Internal Medicine Hematology; Internal Medicine Nephrology; Physician Assistant Medical; Radiology Diagnostic Radiology; Student in an Organized Health Care Education/Training Program; Surgery
PROC: B24BZZZ Ultrasonography of Heart with Aorta (ICD-10-PCS; principal; 2016-05-19)
PROC: BW21ZZZ Computerized Tomography (CT Scan) of Abdomen and Pelvis (ICD-10-PCS; 2016-05-26)
PROC: 03BT0ZX Excision of Left Temporal Artery, Open Approach, Diagnostic (ICD-10-PCS; 2016-05-31)
PROC: 07DR3ZX Extraction of Iliac Bone Marrow, Percutaneous Approach, Diagnostic (ICD-10-PCS; 2016-05-31)
PROC: 0DJD8ZZ Inspection of Lower Intestinal Tract, Via Natural or Artificial Opening Endoscopic (ICD-10-PCS; 2016-06-04)
PROC: 0DB68ZX Excision of Stomach, Via Natural or Artificial Opening Endoscopic, Diagnostic (ICD-10-PCS; 2016-06-04 10:30)
DX: E87.1 Hypo-osmolality and hyponatremia (principal); D61.818 Other pancytopenia; F33.2 Major depressive disorder, recurrent severe without psychotic features; D58.9 Hereditary hemolytic anemia, unspecified; D69.6 Thrombocytopenia, unspecified; I48.0 Paroxysmal atrial fibrillation; I10 Essential (primary) hypertension; R55 Syncope and collapse; E11.9 Type 2 diabetes mellitus without complications; D64.9 Anemia, unspecified; F33.9 Major depressive disorder, recurrent, unspecified; G30.9 Alzheimer's disease, unspecified; F02.80 Dementia in other diseases classified elsewhere, unspecified severity, without behavioral disturbance, psychotic disturbance, mood disturbance, and anxiety; J44.9 Chronic obstructive pulmonary disease, unspecified; E03.9 Hypothyroidism, unspecified; T80.92XA Unspecified transfusion reaction, initial encounter; I73.9 Peripheral vascular disease, unspecified; I25.10 Atherosclerotic heart disease of native coronary artery without angina pectoris; Z79.82 Long term (current) use of aspirin; Z95.5 Presence of coronary angioplasty implant and graft; E04.1 Nontoxic single thyroid nodule; Z87.891 Personal history of nicotine dependence; G43.909 Migraine, unspecified, not intractable, without status migrainosus; R50.9 Fever, unspecified; Z98.49 Cataract extraction status, unspecified eye; Z90.710 Acquired absence of both cervix and uterus; E87.6 Hypokalemia; F41.9 Anxiety disorder, unspecified; F40.01 Agoraphobia with panic disorder
CPT/HCPCS: 36415; 70460; 71010; 71250; 74177; 77002; 77012; 78806; 80048; 80053; 80076; 81003; 82150; 82274; 82308; 82553; 82652; 82947; 83010; 83036; 83605; 83615; 83690; 83735; 83880; 83935; 84100; 84439; 84443; 84484; 85025; 85027; 85044; 85610; 85652; 85730; 86038; 86039; 86140; 86430; 86480; 86606; 86612; 86631; 86698; 86753; 86850; 86870; 86880; 86885; 86900; 86901; 86905; 87040; 87077; 87086; 87633; 87804; 88182; 88184; 88185; 88305; 88311; 88312; 88313; 88323; 88341; 88342; 93005; 93306; 94640; 94664; 94760; 97110; 97116; 97163; 97167; 97530; 97535; 99144; 99153; 99285; G8978-GP; G8979-GP; G8987-GO; G8988-GO; J0610; J1815; J2250; J3010; Q9967

== ENCOUNTER 2016-06-12 01:58 | Inpatient (IN) | payer OTHER ==
--- NOTE | ~2016-06-12 | CO ---
Unit #: [id number] #: [id number] Patient: ANAYELI KHAN [id number] [facility] [address] [facility]. [place], [place] [address] [id number] I MR#: [id number] NAME: ANAYELI KHAN. ROOM: [id number] Age: 75 Sex: F Admission Date: 06/12/2016 : 1940 Attending Physician: Lindy Gonzalez M.D. Primary Care Physician: Andrés Darby M.D. Requesting Physician: Lindy Gonzalez M.D. Consultation Date: 06/12/2016 CONSULTATION REPORT HISTORY OF PRESENT ILLNESS This is a 75-year-old white female, recently discharged from [facility] on 06/04/16. She has past medical history of paroxysmal atrial fibrillation, chronic anticoagulation - on Pradaxa, peripheral vascular disease status post right carotid stent, coronary artery disease status post PCI and stent in 2011 (no records available), hyponatremia, diabetes, COPD, hyperlipidemia, hypertension and hypothyroidism. She was admitted on 06/12/16 after experiencing shortness of breath and chills as her complaint. In the ER she was found to be febrile at 104.3. Blood pressure in the ER was 123/57. Heart rate on arrival was 114. Respirations on arrival were 36. O2 sats were 95. Admission weight was 182 pounds, which is actually down from last admission; however, she reports that this is 20 pounds heavier than she was on Friday at the doctor's office. The patient denies any chest pain. The patient denies any palpitations but said she did feel her heart racing last night. She was very chilled, and her fever started overnight. She has complaints of shortness of breath, which is really her only complaint, and orthopnea. She has complained of bilateral lower extremity swelling for the last 2 days; however, there was none on assessment. She does have orthopnea, which is chronic in nature. She sleeps on a hospital bed at home with a wedge, and her shortness of breath is chronic in nature. She wears a CPAP machine at bedtime, and she wears 2 liters of oxygen continuously at home. Her shortness of breath apparently got worse last night. She denies any abdominal distention. She denies any dizziness. She denies any syncope. No chest pain and no palpitations. She states that she takes her medicines as prescribed. However, on reviewing her home medicines, she was not reportedly on a statin, and her Bumex was 1 mg every day and not b.i.d., as noted. In the ER, she had a chest x-ray, which showed ehirgqnq-hq-rdnusx diffuse infiltrates bilaterally, which was a change from her last chest x-ray on 05/24/16. This is a new onset. Otherwise, heart size was normal. Recent testing of note includes a MUGA scan on 04/25/16, which showed her EF to be 48%. The family does report that she has had history of systolic dysfunction with an EF as low as 25%, but I do not see that report. She also had an echo on 05/19/16, which had reduced quality due to poor acoustic window; however, her EF was visually estimated at 55% to 60% last month. Also, she had a left heart cath performed by Dr. Arboleda on 03/08/16. The LAD was a large vessel, and there was mid area stent, which is patent; otherwise no stenosis. OM-1 in the left circumflex was a moderate sized vessel with 70% stenosis with a previous stent in the mid left circumflex. RCA showed to be nondominant vessel and was very small. Unit #: [id number] #: [id number] Patient: ANAYELI KHAN She did have 100% occlusion at the ostium. Of note, there was a catheter placed in the right coronary and unable to cannulate the vessel. Medical treatment was recommended after that heart cath. Also of note, on her recent admission in May she was discharged on June 04, but she did have a bone marrow biopsy for similar complaints of fever of unknown origin. She had pancytopenia and low iron. Her bone marrow biopsy results include subtle maturation abnormalities noted within the erythroid and megakaryocytic lineages. Ringed sideroblasts are not identified. Blasts represent less than 5% of marrow cells. The bone marrow morphologic findings are not specific, but the possibility of an evolving myeloid neoplasm with dysplastic features would be included in the differential diagnoses. Additionally, the presence of an absolute monocytosis may also be seen in chronic myelomonocytic leukemia. A repeat marrow study, after an appropriate clinical interval, for followup was advised. A sputum culture was sent on 06/12, which is pending. Blood cultures sent, also on 06/12, are pending. PAST SURGICAL HISTORY Partial hysterectomy, bilateral oophorectomy, cataracts, appendectomy and cardiac catheterization. ALLERGIES Tegretol and gabapentin. HOME MEDICATIONS 1. Ipratropium albuterol sulfate 3 mL inhaled q.i.d. 2. Levothyroxine 50 mcg daily. 3. Vitamin B12 two tablets daily. 4. Pradaxa 150 mg b.i.d. 5. Symbicort 160/4.5 mcg 2 puffs b.i.d. 6. Coreg 3.125 p.o. b.i.d. 7. Bumex 1 mg daily. 8. Ferrous gluconate 324 mg b.i.d. 9. Vitamin D2 - 50,000 units weekly. 10. Aspirin 81 mg daily. 11. Ultram 50 mg q.4 hours as needed for pain. 12. Zofran 4 mg q.4 hours as needed for nausea. 13. Lorazepam 1 mg b.i.d. as needed for anxiety. 14. Nitroglycerin 0.4 mg sublingual p.r.n. chest pain. 15. Acetaminophen 500 mg q.6 hours as needed. 16. Aricept 5 mg at bedtime. 17. Prednisone 30 mg daily. 18. Remeron 15 mg at bedtime. FAMILY HISTORY Noncontributory. SOCIAL HISTORY She never smoked. Denies any alcohol or illicit drug use. Is accompanied by her daughter at bedside who seems to know a lot about her hospitalization history and heart health history. REVIEW OF SYSTEMS A 12-point review of systems was negative except as noted above in the HPI. She denied any chest pain. She denied any palpitations, dizziness, syncope. She does report shortness of breath, which was worse overnight, chills, and orthopnea, which is chronic in nature for her. She sleeps in a hospital bed with a wedge. She states that she has had bilateral lower Unit #: [id number] #: [id number] Patient: ANAYELI KHAN extremity swelling for about 2 days. Denies any abdominal distension. PHYSICAL EXAMINATION VITAL SIGNS: Temperature on admission was 104.3; at 8 a.m. it was 99. Her heart rate was 80, respirations 17, blood pressure 96/49; on recheck it was 101/52. Sats are 99% to 100% on 2 liters supplemental oxygen. She weighed 83 kg. Her BMI is 35. GENERAL: She is seen and examined in the ER lying in bed. She does appear to be acutely ill. SKIN: Pale but warm and dry. LUNGS: Bilateral crackles and rhonchi noted. CARDIOVASCULAR: She is in a regular rate and rhythm. She has distant heart sounds. S1, S2 were noted but very faint. NECK: Supple with no JVD noted. ABDOMEN: Soft and obese. Positive bowel sounds. EXTREMITIES: Extremities show no edema and positive pulses. DIAGNOSTIC TESTING IMAGING: Chest x-ray on 06/12/16 in the ER showed uqmoofgi-xp-bjjucc diffuse bilateral infiltrates, which is new onset since 05/24/16. No pleural effusions noted and normal heart size. CARDIOVASCULAR: She had an EKG, which showed sinus tachycardia with some ST elevation in leads III and AVF and T wave inversions in lead I. On repeat EKG at 8:29 this morning, it shows sinus rhythm with frequent PVCs, inferolateral ST elevations, T wave inversions in leads V4, V5 and lead I and prolonged QTc of 507. LABORATORY TESTING: Troponin 0.58 initially and then on repeat was 1.94. Hemoglobin 10.9, hematocrit 33.4. UA showed positive leukocytes and positive glucose. Platelets 101, WBC 12.2. Total protein 5.8, albumin 3, AST 68, ALT 38. BNP was 640. Sodium 134, potassium 4.1, chloride 96, CO2 29, BUN 23, creatinine 0.8, glucose 96. INR 1.1. IMPRESSION 1. Recurrent fever. 2. Elevated troponin with ST elevation. 3. Acute on chronic diastolic heart failure with last EF of 55% to 60%. 4. Bilateral pneumonia. 5. Acute ST elevated inferior wall NC, now resolved. PLAN Cardiology is asked to see her for her elevated troponin. It appears she had an acute ST elevated NC, which is now resolved; however, we will trend her troponins. She is on aspirin. We started her on an Integrilin drip. We will need to stop her Pradaxa and start heparin later on today. She possibly could have a repeat cath when more stable, but she is very sick. She will need to be on a statin. We will start Lipitor 80 mg daily for acute NC protocol and add a lipid panel to her labs. Check a CBC, BMP and troponin with an EKG tomorrow morning. Her blood pressure is marginally low. We will discontinue her nitro paste. She has been NPO. She will be okay for a heart healthy diet with low salt and sodium restriction. Thank you for this consultation. Unit #: [id number] #: [id number] Patient: BILLANAYELI F Dictated by... Sheri Soriano APRN for Candice Wilder TD: 06/12/2016 11:23 JOB #: [id number] CONSULTATION REPORT Page 1 of 1 X X CONSULTATION REPORT
--- NOTE | ~2016-06-12 | EKG ---
PATIENT: ANAYELI KHAN UNIT #: [id number] Ventricular Rate: 90 BPM Atrial Rate: 90 BPM P-R Interval: 160 ms QRS Duration: 84 ms Q-T Interval: 404 ms QTC Calculation(Bezet): 494 ms P [place]: 71 degrees Calculated R [place]: 92 degrees Calculated T [place]: 159 degrees Diagnosis Line: Normal sinus rhythm Diagnosis Line: Rightward axis Diagnosis Line: T wave abnormality, consider anterolateral Diagnosis Line: ischemia Diagnosis Line: Prolonged QT Diagnosis Line: Abnormal ECG Diagnosis Line: When compared with ECG of 13-JUN-2016 07:52, Diagnosis Line: Aberrant conduction is no longer Present Diagnosis Line: Confirmed by SILVIA SANTIAGO MD ([id number]) on 06/16/2016 Diagnosis Line: 7:21:48 AM INTERPRETING MD: JACK MIRELES
--- NOTE | ~2016-06-12 | CO ---
Unit #: [id number] #: [id number] Patient: ANAYELI KHAN [id number] [address] [address] [id number] I MR#: [id number] NAME: ANAYELI KHAN. ROOM: [facility] Age: 75 Sex: F Admission Date: 06/12/2016 : 1940 Attending Physician: Lindy Gonzalez M.D. Primary Care Physician: Andrés Darby M.D. Consultation Date: 06/13/2016 CONSULTATION REPORT The patient was admitted to Dr. Gonzalez. REASON FOR CONSULTATION Fever in a patient with a recent fever of unknown origin. HISTORY OF PRESENT ILLNESS This is a 75-year-old female that is well known to our service. The patient was recently admitted and discharged on June 04, 2016. During that admission, the patient had extensive workup for fever of unknown origin including a bone marrow biopsy as there was unexplained fever. The patient had a gallium scan which was negative, multiple cultures which were negative, and CT scans were negative. The patient was empirically treated for a possible sinusitis; however, she continued to have fever despite antibiotic therapy. The patient eventually was started on steroids empirically and fever subsided. She was discharged home and she has been afebrile until 48 hours prior to admission when she began with chills and some questionable altered mental status. The patient was admitted to the hospital. She was found to have some elevated troponin and BNP and she was admitted to the ICU. The patient was placed on empiric antibiotics of vancomycin and Zosyn due to possibility of developing pneumonia. ID was asked to evaluate due to recurrence of fever. PAST MEDICAL HISTORY 1. Paroxysmal atrial fibrillation on chronic anticoagulation therapy. 2. Coronary artery disease. 3. Hypothyroidism. 4. Peripheral vascular disease, status post carotid stent. 5. Chronic hyponatremia. 6. COPD. 7. Hyperlipidemia. 8. Diabetes mellitus. PAST SURGICAL HISTORY 1. Appendectomy. 2. Cardiac cath. 3. Partial hysterectomy. 4. Bilateral oophorectomy. ALLERGIES Tegretol and gabapentin. SOCIAL HISTORY The patient lives with her family. She has no evidence of alcohol, tobacco, or drug use. Unit #: [id number] #: [id number] Patient: ANAYELI KHAN MEDICATIONS The patient is currently on vancomycin and Zosyn. For other medications, please refer to patient's MAR. REVIEW OF SYSTEMS The patient denies any change in her headache. She has chronic migraines. She denies any sore throat symptoms or rhinorrhea. She does report some wet cough; however, she does not have any productive sputum. She denies any chest pain, nausea, vomiting, diarrhea, or pain with urination. The patient does report since admission she does have some irritation with the Chin catheter. The patient denies any nonhealing wounds. PHYSICAL EXAMINATION VITAL SIGNS: Temperature 98.7 with a T-max this admission of 104.3, pulse is 96, blood pressure 107/47, respiratory rate 21. GENERAL: This is a no apparent distress female who is currently resting in the bed. HEENT: Her pupils are equal. NECK: Her neck is supple. CARDIOVASCULAR: S1, S2. Regular rate and rhythm. PULMONARY: Clear to auscultation. Diminished in the bases with no wheezes or rhonchi noted. ABDOMEN: Positive bowel sounds. Soft and nontender. EXTREMITIES: No clubbing, cyanosis. There is trace edema. DIAGNOSTIC STUDIES LABORATORY: BUN 23, creatinine 0.8, sodium 138, potassium 4.1, chloride 99, CO2 of 29. Bilirubin 0.9, AST 68, ALT 38. CK total 19, troponin 0.25 with its highest peak at 1.94. BNP 640. Ammonia 43. Lactic acid 1. Procalcitonin 0.44. WBC 7.8 and on admission 12.2, hemoglobin 9.9, hematocrit 30.1, platelets 74,000. Urinalysis shows unremarkable findings. Blood culture, urine culture, and sputum culture are currently pending. IMAGING: CT scan shows no acute findings. Please see full report for complete details. Chest x-ray shows extensive diffuse reticular nodule, pulmonary infiltrate new since May 24, 2016. IMPRESSION This is a 75-year-old female recently admitted with fever of unknown origin without any infectious etiology found. The patient was followed by hematology as well and was status post bone marrow biopsy which was nondiagnostic. The patient was sent home on steroids and was to followup with rheumatology. The patient reports that she was doing well until 48 hours prior to admission when she began with fever and chills, again at home up to 104 degrees Fahrenheit without significant findings except for some nonproductive cough. The patient was admitted and was found to have a ST elevation myocardial infarction followed by cardiology. At this time, it is difficult to exclude any developing or developed healthcare-associated pneumonia from her last admission. The patient's fever has subsided and her white blood cell count has improved. At this time, no objection to continuing therapy with vancomycin and Zosyn. However, unclear if potentially her fever was the result of her cardiac event. The patient's procalcitonin was not significantly elevated on admission and her leukocytosis could be attributed to taking steroids at Unit #: [id number] #: [id number] Patient: ANAYELI KHAN. The patient appears nontoxic. She is not on any pressors; however, she remains in the intensive care unit. This case will be discussed with Dr. Fabio Houston who will evaluate this patient today. Thank you for allowing us to participate in the care of this patient. Further recommendations to follow pending patient's clinical course. Dictated by... Westley Godoy.P.R.N. for Candice Bernal/kin TD: 06/13/2016 09:25 JOB #: [id number] CONSULTATION REPORT Page 1 of 1 X X CONSULTATION REPORT
--- NOTE | ~2016-06-12 | EKG ---
PATIENT: ANAYELI KHAN UNIT #: [id number] Ventricular Rate: 105 BPM Atrial Rate: 105 BPM P-R Interval: 176 ms QRS Duration: 86 ms Q-T Interval: 398 ms QTC Calculation(Bezet): 526 ms P [place]: 61 degrees Calculated R [place]: 34 degrees Calculated T [place]: 158 degrees Diagnosis Line: Sinus tachycardia with Premature atrial complexes Diagnosis Line: with Aberrant conduction Diagnosis Line: ST and T wave abnormality, consider inferolateral Diagnosis Line: ischemia Diagnosis Line: Abnormal ECG Diagnosis Line: When compared with ECG of 14-JUN-2016 06:42, Diagnosis Line: (unconfirmed) Diagnosis Line: Aberrant conduction is now Present Diagnosis Line: Questionable change in QRS axis Diagnosis Line: Non-specific change in ST segment in Anterior Diagnosis Line: leads Diagnosis Line: Confirmed by SILVIA SANTIAGO MD ([id number]) on 06/16/2016 Diagnosis Line: 7:26:32 AM INTERPRETING MD: JACK MIRELES
--- NOTE | ~2016-06-12 | CR72 ---
[facility] A Service of [facility] RADIOLOGY TEXT RESULTS PATIENT: ANAYELI KHAN LOCATION: [place] [address] : [birth year] UNIT #: [id number] AGE: [address]: Lindy Gonzalez MD SEX: F ORDER DR: [id number] [facility] [address] [facility]. [place], [place] [address] [id number] I MR#: [id number] Acc #: [id number] NAME: ANAYELI KHAN. : 1940 SEX: F STUDY DATE/TIME: 06/14/2016 4:50 UNIT: [facility] ROOM: [facility] STUDY DESCRIPTION: CR Chest Single View Portable Attending Physician: Lindy Gonzalez M.D. Ordering Physician: Marvel Ace M.D. Primary Care Physician: Andrés Darby M.D. MEDICAL IMAGING REPORT This report is preliminary unless electronic signature is present EXAM AP portable chest, 06/14/2016. HISTORY Respiratory failure. Shortness of air and fever. Follow up cardiopulmonary status. TECHNIQUE AP portable chest x-ray. FINDINGS Examination is unchanged since yesterday. Patchy diffuse pulmonary infiltrates throughout both lungs are stable. Heart size is within normal limits. No dense airspace consolidation, pleural effusion or pneumothorax. IMPRESSION Stable portable chest radiograph, unchanged since yesterday. Dictated by... Cornelius Godoy M.D. THIS IS AN ELECTRONICALLY VERIFIED REPORT Cornelius Godoy M.D. at 06/18/2016 5:01 PM EVA/nirali TD: 06/14/2016 08:45 JOB #: [id number] MEDICAL IMAGING REPORT Page 1 of 1 COPY
--- NOTE | ~2016-06-12 | CR72 ---
[facility] A Service of [facility] RADIOLOGY TEXT RESULTS PATIENT: ANAYELI HKAN LOCATION: [place] [address] : [birth year] UNIT #: [id number] AGE: [address]: Lindy Gonzalez MD SEX: F ORDER DR: [id number] [facility] [address] [place], [place] [address] [id number] I MR#: [id number] Acc #: [id number] NAME: ANAYELI KHAN. : 1940 SEX: F STUDY DATE/TIME: 06/12/2016 2:06 UNIT: [facility] ROOM: [facility] STUDY DESCRIPTION: CR Chest Single View Portable Attending Physician: Lindy Gonzalez M.D. Ordering Physician: Barry Muñoz D.O. Primary Care Physician: Andrés Darby M.D. MEDICAL IMAGING REPORT This report is preliminary unless electronic signature is present EXAM Chest x-ray 06/12/2016. HISTORY 75-year-old female in the ED complaining of fever, shortness of air and weakness. She has had recent extensive evaluation for unexplained fever, including bone marrow biopsy. TECHNIQUE AP portable upright chest x-ray. FINDINGS The examination shows moderately severe diffuse reticulonodular infiltrate throughout both lungs. This is new since recent chest x-ray 05/24/[address] 05/24/2016. New onset diffuse pneumonitis or pulmonary edema is likely. Heart size remains normal. There is no visible pleural effusion. IMPRESSION Extensive diffuse reticulonodular pulmonary infiltrate, new since 05/24/2016. Dictated by... Cornelius Godoy M.D. THIS IS AN ELECTRONICALLY VERIFIED REPORT Cornelius Godoy M.D. at 06/12/2016 10:06 PM RGW/gz TD: 06/12/2016 13:22 JOB #: [id number] MEDICAL IMAGING REPORT [facility] A Service of [facility] RADIOLOGY TEXT RESULTS PATIENT: ANAYELI KHAN LOCATION: [address] : [birth year] UNIT #: [id number] AGE: [address]: Lindy Gonzalez MD SEX: F ORDER DR: Page 1 of 1 COPY
--- NOTE | ~2016-06-12 | EKG ---
PATIENT: ANAYELI KHAN UNIT #: [id number] Ventricular Rate: 147 BPM Atrial Rate: 144 BPM QRS Duration: 84 ms Q-T Interval: 312 ms QTC Calculation(Bezet): 488 ms Calculated R [place]: 50 degrees Calculated T [place]: -166 degrees Diagnosis Line: Sinus tachycardia Diagnosis Line: ST and T wave abnormality, consider inferolateral Diagnosis Line: ischemia Diagnosis Line: Abnormal ECG Diagnosis Line: When compared with ECG of 12-JUN-2016 08:29, Diagnosis Line: (unconfirmed) Diagnosis Line: Premature ventricular complexes are no longer Diagnosis Line: Present Diagnosis Line: Vent. rate has increased BY 64 BPM Diagnosis Line: Non-specific change in ST segment in Inferior Diagnosis Line: leads Diagnosis Line: ST now depressed in Lateral leads Diagnosis Line: T wave inversion now evident in Inferior leads Diagnosis Line: EKG WAS DONE ON 06/12/16 @ 22:27 Diagnosis Line: Reconfirmed by JACK MIRELES, SILVIA ([id number]), editorial clerk Diagnosis Line: FLORENCIA LUCIANO ([id number]) on 06/14/2016 8:59:45 AM INTERPRETING MD: JACK MIRELES
--- NOTE | ~2016-06-12 | CT71 ---
[facility] A Service of [facility] RADIOLOGY TEXT RESULTS PATIENT: ANAYELI KHAN LOCATION: [place] [address] : [birth year] UNIT #: [id number] AGE: [address]: Lindy Gonzalez MD SEX: F ORDER DR: [id number] [facility] [address] [facility] [place], [place] [address] [id number] I MR#: [id number] Acc #: [id number] NAME: ANAYELI KHAN : 1940 SEX: F STUDY DATE/TIME: 06/12/2016 2:09 UNIT: [facility] ROOM: [facility] STUDY DESCRIPTION: CT Head Wo Contrast Attending Physician: Lindy Gonzalez M.D. Ordering Physician: Barry Muñoz D.O. Primary Care Physician: Andrés Darby M.D. MEDICAL IMAGING REPORT This report is preliminary unless electronic signature is present EXAM CT head, noncontrast, 06/12/2016 HISTORY 75-year-old female in the ED complaining of 2-day history of confusion/mental status change. She has undergone recent evaluation for unexplained fever including bone marrow biopsy on 05/31/2016. Recent CT examination for similar symptoms on 05/22/2016. TECHNIQUE CT examination of the head without IV contrast. This CT exam was performed with one or more of the following radiation dose reduction techniques: automatic exposure control, adjustment of mA and/or kV according to patient size, and iterative reconstruction. FINDINGS No acute intracranial abnormality is identified. Mild generalized cerebral cortical atrophy. Mild diffuse low-attenuation white matter changes are nonspecific but likely related to chronic microvascular disease. These findings are stable. No evidence of intracranial hemorrhage, mass, mass effect, cerebral edema or hydrocephalus. IMPRESSION 1. No acute intracranial abnormality. 2. Stable mild diffuse chronic changes as noted above. 3. No change since 05/22/2016. Dictated by... Cornelius Godoy M.D. [facility] A Service of [facility] RADIOLOGY TEXT RESULTS PATIENT: ANAYELI KHAN LOCATION: [facility] CICCU2-10 : 38 UNIT #: [id number] AGE: [address]: Lindy Gonzalez MD SEX: F ORDER DR: THIS IS AN ELECTRONICALLY VERIFIED REPORT Cornelius Godoy M.D. at 06/12/2016 10:06 PM Jensen TD: 06/12/2016 13:16 JOB #: [id number] MEDICAL IMAGING REPORT Page 1 of 1 COPY
--- NOTE | ~2016-06-12 | CT57 ---
[facility] A Service of [facility] RADIOLOGY TEXT RESULTS PATIENT: ANAYELI KHAN LOCATION: [place] [address] : 39 UNIT #: [id number] AGE: [address]: Lindy Gonzalez MD SEX: F ORDER DR: [id number] [facility] [address]. [place], [place] [address] [id number] I MR#: [id number] Acc #: [id number] NAME: ANAYELI KHAN. : 1940 SEX: F STUDY DATE/TIME: 06/15/2016 13:49 UNIT: [id number] ROOM: [facility] STUDY DESCRIPTION: CT Chest Wo Cont Attending Physician: Lindy Gonzalez M.D. Ordering Physician: Vishal Agarwal M.D. Primary Care Physician: Andrés Darby M.D. MEDICAL IMAGING REPORT This report is preliminary unless electronic signature is present EXAM CT chest without contrast HISTORY 75-year-old female fever, shortness of air, pneumonia x3 days COMPARISON CT chest 05/24/[address] exam was performed with one or more of the following radiation dose reduction techniques: automatic control, adjustment of mA and/or kV according to patient size, and iterative reconstruction. FINDINGS Axial images performed through the chest without contrast. Multiplanar reconstructed images reviewed at a workstation. There is extensive airspace disease throughout both lungs which is new from 05/24/2016 is compatible with acute airspace disease possibly representing pulmonary edema or diffuse multifocal pneumonia. No dense consolidation. No effusions. Trachea and bronchi unremarkable. Stable cardiomegaly. Coronary artery calcifications noted. Aorta shows minimal atherosclerotic changes. Pulmonary vessels unremarkable. No pericardial effusion. There are a few small mediastinal lymph nodes though none pathologically enlarged. Upper abdomen unremarkable. Osseous structures show diffuse degenerative changes. Thoracic inlet unremarkable. Extensive calcifications left thyroid gland but these appear to be primarily peripheral calcifications most likely indicative of a benign disease however correlation with ultrasound may be warranted. IMPRESSION 1. Extensive diffuse multifocal airspace disease most likely represents multifocal pneumonia or pulmonary edema. No evidence that this [facility] A Service of [facility] RADIOLOGY TEXT RESULTS PATIENT: ANAYELI KHAN LOCATION: [facility] [id number] : 39 UNIT #: [id number] AGE: [address]: Lindy Gonzalez MD SEX: F ORDER DR: appears to be cardiogenic in nature. 2. Multiple left thyroid calcifications which appear to represent a peripheral calcifications typically associated with benign disease however correlation with thyroid ultrasound may be warranted. Dictated by... Tiff Bolivar M.D. THIS IS AN ELECTRONICALLY VERIFIED REPORT Tiff Bolivar M.D. at 06/16/2016 10:51 PM YADIRA/zully TD: 06/16/2016 05:12 JOB #: [id number] MEDICAL IMAGING REPORT Page 1 of 1 COPY
--- NOTE | ~2016-06-12 | CR71 ---
[facility] A Service of [facility] RADIOLOGY TEXT RESULTS PATIENT: ANAYELI KHAN [address] : [birth year] UNIT #: [id number] AGE: [address]: Lindy Gonzalez MD SEX: F ORDER DR: [id number] [facility] [address] [facility]. [place], [place] [address] [id number] I MR#: [id number] #: [id number] NAME: ANAYELI KHAN. : 1940 SEX: F STUDY DATE/TIME: 06/13/2016 5:53 UNIT: [facility] ROOM: [facility] STUDY DESCRIPTION: CR Chest Single View Attending Physician: Lindy Gonzalez M.D. Ordering Physician: Marvel Ace M.D. Primary Care Physician: Andrés Darby M.D. MEDICAL IMAGING REPORT This report is preliminary unless electronic signature is present EXAM Portable chest HISTORY Pneumonia, fever and weakness. Symptoms over the past day. COMPARISON 06/12/2016. TECHNIQUE A single AP view of the chest was obtained. FINDINGS The heart and mediastinum are stable. Extensive infiltrates are seen bilaterally. These infiltrates show slight improvement from the previous exam. No pleural fluid is noted. The vascular markings are normal. IMPRESSION Extensive bilateral infiltrates are again seen but show improvement since the previous examination. No new infiltrates are seen. Dictated by... Kahlil Kasper M.D. THIS IS AN ELECTRONICALLY VERIFIED REPORT Kahlil Kasper M.D. at 06/13/2016 10:45 AM JESSA/blaise TD: 06/13/2016 08:29 JOB #: [id number] MEDICAL IMAGING REPORT [facility] A Service [facility] RADIOLOGY TEXT RESULTS PATIENT: ANAYELI KHAN LOCATION: [address] : 39 UNIT #: [id number] AGE: [address]: Lindy Gonzalez MD SEX: F ORDER DR: Page 1 of 1 COPY
--- NOTE | ~2016-06-12 | EKG ---
PATIENT: ANAYELI KHAN UNIT #: [id number] Ventricular Rate: 77 BPM Atrial Rate: 77 BPM P-R Interval: 146 ms QRS Duration: 80 ms Q-T Interval: 472 ms QTC Calculation(Bezet): 534 ms P [place]: 71 degrees Calculated R [place]: 58 degrees Calculated T [place]: 96 degrees Diagnosis Line: Sinus rhythm with occasional Premature ventricular Diagnosis Line: complexes and Premature atrial complexes Diagnosis Line: T wave abnormality, consider anterolateral Diagnosis Line: ischemia Diagnosis Line: Prolonged QT Diagnosis Line: Abnormal ECG Diagnosis Line: When compared with ECG of 15-JUN-2016 04:54, Diagnosis Line: Premature ventricular complexes are now Present Diagnosis Line: Inverted T waves have replaced nonspecific T wave Diagnosis Line: abnormality in Anterior leads Diagnosis Line: Confirmed by SILVIA SANTIAGO MD ([id number]) on 06/18/2016 Diagnosis Line: 10:23:12 PM INTERPRETING MD: JACK MIRELES
--- NOTE | ~2016-06-12 | EKG ---
PATIENT: ANAYELI KHAN UNIT #: [id number] Ventricular Rate: 98 BPM Atrial Rate: 98 BPM P-R Interval: 162 ms QRS Duration: 88 ms Q-T Interval: 392 ms QTC Calculation(Bezet): 500 ms P [place]: 75 degrees Calculated R [place]: 37 degrees Calculated T [place]: 166 degrees Diagnosis Line: Sinus rhythm with Premature atrial complexes with Diagnosis Line: Aberrant conduction Diagnosis Line: ST and T wave abnormality, consider anterolateral Diagnosis Line: ischemia Diagnosis Line: Prolonged QT Diagnosis Line: Abnormal ECG Diagnosis Line: Diagnosis Line: Confirmed by SILVIA SANTIAGO MD ([id number]) on 06/14/2016 Diagnosis Line: 7:44:24 AM INTERPRETING MD: JACK MIRELES
--- NOTE | ~2016-06-12 | EKG ---
PATIENT: ANAYELI KHAN UNIT #: [id number] Ventricular Rate: 83 BPM Atrial Rate: 83 BPM P-R Interval: 148 ms QRS Duration: 82 ms Q-T Interval: 432 ms QTC Calculation(Bezet): 507 ms P [place]: 51 degrees Calculated R [place]: 54 degrees Calculated T [place]: 121 degrees Diagnosis Line: Sinus rhythm with frequent Premature ventricular Diagnosis Line: complexes Diagnosis Line: ST and T wave abnormality, consider lateral ischemia Diagnosis Line: Prolonged QT Diagnosis Line: Abnormal ECG Diagnosis Line: When compared with ECG of 12-JUN-2016 01:39, Diagnosis Line: (unconfirmed) Diagnosis Line: Premature ventricular complexes are now Present Diagnosis Line: Confirmed by SILVIA SANTIAGO MD ([id number]) on 06/14/2016 Diagnosis Line: 7:37:58 AM INTERPRETING MD: JACK MIRELES
--- NOTE | ~2016-06-12 | EKG ---
PATIENT: ANAYELI KHAN UNIT #: [id number] Ventricular Rate: 87 BPM Atrial Rate: 87 BPM P-R Interval: 140 ms QRS Duration: 82 ms Q-T Interval: 446 ms QTC Calculation(Bezet): 536 ms P [place]: 56 degrees Calculated R [place]: 6 degrees Calculated T [place]: -64 degrees Diagnosis Line: Sinus rhythm with Premature supraventricular Diagnosis Line: complexes with occasional Premature ventricular Diagnosis Line: complexes Diagnosis Line: Possible Anterior infarct , age undetermined Diagnosis Line: T wave abnormality, consider inferolateral Diagnosis Line: ischemia Diagnosis Line: Prolonged QT Diagnosis Line: Abnormal ECG Diagnosis Line: When compared with ECG of 17-JUN-2016 05:36, Diagnosis Line: (unconfirmed) Diagnosis Line: No significant change was found Diagnosis Line: Confirmed by SILVIA SANTIAGO MD ([id number]) on 06/18/2016 Diagnosis Line: 10:32:26 PM INTERPRETING MD: JACK MIRELES
--- NOTE | ~2016-06-12 | CR63 ---
[facility] A Service of [facility] RADIOLOGY TEXT RESULTS PATIENT: ANAYELI KHAN LOCATION: [facility] 55- : 39 UNIT #: [id number] AGE: [address]: Lindy Gonzalez MD SEX: F ORDER DR: [id number] [facility] [address] [facility]. [place], [place] [address] [id number] I MR#: [id number] #: [id number] NAME: ANAYELI KHAN. : 1940 SEX: F STUDY DATE/TIME: 06/17/2016 9:29 UNIT: [facility] ROOM: [facility] STUDY DESCRIPTION: CR Chest 2 View Attending Physician: Lindy Gonzalez M.D. Ordering Physician: Marvel Ace M.D. Primary Care Physician: Andrés Darby M.D. MEDICAL IMAGING REPORT This report is preliminary unless electronic signature is present EXAM 2 views chest HISTORY Pneumonia. Short of air, cough since 06/12/2016. Prior history of diabetes, CHF and uterine cancer. PA and lateral radiographs of chest are presented. The lateral view is suboptimal due to poor radiographic technique and the patient's large body habitus. Degenerative changes in the spine. No acute-appearing bony abnormality. Stable mild cardiac enlargement. Pulmonary vascular congestion unchanged from prior study. Mild peribronchial and interstitial prominence bilaterally. The appearance could be a reflection of mild interstitial edema and/or components of bronchitis. There is no dense airspace disease. No pleural effusion or pneumothorax and no suspicious nodule. Given differences in technique, no significant change in the lungs. Dictated by... Yonny Forbes M.D. THIS IS AN ELECTRONICALLY VERIFIED REPORT Yonny Forbes M.D. at 06/18/2016 6:04 PM JEN/ollie TD: 06/17/2016 12:54 JOB #: [id number] MEDICAL IMAGING REPORT [facility] A Service of [facility] RADIOLOGY TEXT RESULTS PATIENT: ANAYELI KHAN LOCATION: [address]01 : 39 UNIT #: [id number] AGE: [address]: Lindy Gonzalez MD SEX: F ORDER DR: Page 1 of 1 COPY
--- NOTE | ~2016-06-12 | CO ---
Unit #: [id number] #: [id number] Patient: ANAYELI KHAN [id number] [address] [place], [place] [address] [id number] I MR#: [id number] NAME: ANAYELI KHAN. ROOM: [facility] Age: 75 Sex: F Admission Date: 06/12/2016 : 1940 Attending Physician: Lindy Gonzalez M.D. Primary Care Physician: Andrés Darby M.D. Consultation Date: 06/13/2016 CONSULTATION REPORT REASON FOR CONSULTATION Anemia, please evaluate. HISTORY OF PRESENT ILLNESS Ms. Anayeli Pagan is a 75 years old well known to me for recent hospital admission and discharged during which she had fevers. Workup revealed a delayed hemolytic transfusion reaction likely the source for the fever. 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 In view of chronic anemia and thrombocytopenia, she underwent a bone marrow aspiration and flow cytometry and cytogenetics. FISH panel and cytogenetics were normal. Flow cytometry was negative. Bone marrow was hypercellular with left shift and decreased iron stores and a possibility of developing myeloid disorders was raised. Following admission, she was discharged home and tells me she was doing very well until the day prior to her admission when she started having chills and developed high fever and came to emergency room. She is thereafter being started on IV antibiotics and workup has revealed an acute non-ST OH and she is scheduled after stabilization to undergo repeat diagnostic catheterization. PAST MEDICAL HISTORY Paroxysmal atrial fibrillation on chronic anticoagulation therapy, coronary artery disease with OH in February 2016, hypothyroidism, peripheral vascular disease, hyponatremia, COPD, and hyperlipidemia. PAST SURGICAL HISTORY Appendectomy, cardiac cath, partial hysterectomy with bilateral oophorectomy. ALLERGIES Tegretol and gabapentin. SOCIAL HISTORY Never smoker. Does not drink any alcohol. She lives with her daughter, who is at bedside. REVIEW OF SYSTEMS Fourteen point review of systems taken. CONSTITUTIONAL: Fatigue and weakness. Fever as discussed. EYES: Negative. EARS, NOSE, MOUTH, AND throat: Negative. CARDIOVASCULAR: No clear chest pain. RESPIRATORY: Shortness of breathing. Unit #: [id number] #: [id number] Patient: ANAYELI KHAN GASTROINTESTINAL: No change in bowel habits. GENITOURINARY: Negative. NEUROLOGIC: She has history of forgetfulness and dementia, but daughter tells me that this is primarily confusion when she gets ill. ALLERGIC/LYMPHATIC: Negative. SKIN: Negative. PHYSICAL EXAMINATION GENERAL: She is a pleasant elderly woman, lying in bed, currently in no distress. VITAL SIGNS: Temperature 98.7, pulse rate is 101, respiratory rate 27, blood pressure 97/38, O2 saturations 90%. HEENT: Shows pupils are equal and reactive well to light. Mild pallor. No icterus. Mucous membranes are moist. NECK: Without adenopathy, JVD, or thyromegaly. CARDIOVASCULAR: First and second heart sounds are regular without murmurs, gallops, or rubs. LUNGS: Chest expansion is symmetric bilaterally with normal breath sounds. ABDOMEN: Soft and nontender. Liver and spleen are not palpable. EXTREMITIES: Warm and good pulses. No edema, cyanosis, or clubbing. NEUROLOGIC: She is awake, alert, and oriented x3 with no focal findings. SKIN: Negative. DIAGNOSTIC STUDIES IMAGING STUDIES: Radiology, chest x-ray was reviewed and showed the bilateral infiltrates are actually better than compared to previous. LABORATORY RESULTS: Her CBC shows a white count of 7.8, hemoglobin of 9.9, MCV is 97.3, platelet count 74,000. Basic metabolic panel shows a BUN of 23, creatinine is 0.8. She is currently on antibiotics after blood cultures have been drawn and is afebrile. Troponin levels have been elevated as high as 1.94. IMAGING STUDIES: CT scan of the head done without contrast reveals no intracranial abnormalities. ASSESSMENT AND PLAN Ms. Anayeli Pagan is a 75 years old with a history of coronary artery disease, atrial fibrillation, paroxysmal atrial fibrillation on anticoagulation with a history of anemia and thrombocytopenia dating back to the previous admission. Bone marrow aspiration biopsy showed normal cellular bone marrow with some decreased iron stores which may be partly from the chronic hospitalization and multiple blood draws. Fever may be related to her healthcare-associated pneumonia, however, her infiltrates are actually better compared to previously. She also has an acute non-ST myocardial infarction and is scheduled to undergo cardiac catheterization later this admission once stable. I discussed with Ms. Pagan and her daughter who is at bedside details of the bone marrow examination and the fact that she may have a developing myeloid disorder but this seems unlikely at this point, but will need to be closely watched. Discussed with them about having decreased iron stores and plan to give her Ferrlecit during this hospital stay and monitor CBC. Thank you for allowing me to participate in her care and I will follow with you. Unit #: [id number] #: [id number] Patient: ANAYELI KHAN Dictated by... Candice Vazquez/rajni TD: 06/14/2016 03:56 JOB #: [id number] CONSULTATION REPORT Page 1 of 1 X Hardy Mock MD X CONSULTATION REPORT
--- NOTE | ~2016-06-12 | EKG ---
PATIENT: ANAYELI KHAN UNIT #: [id number] Ventricular Rate: 147 BPM Atrial Rate: 144 BPM QRS Duration: 84 ms Q-T Interval: 312 ms QTC Calculation(Bezet): 488 ms Calculated R [place]: 50 degrees Calculated T [place]: -166 degrees Diagnosis Line: Sinus tachycardia Diagnosis Line: ST and T wave abnormality, consider inferolateral Diagnosis Line: ischemia Diagnosis Line: Abnormal ECG Diagnosis Line: When compared with ECG of 12-JUN-2016 08:29, Diagnosis Line: (unconfirmed) Diagnosis Line: Premature ventricular complexes are no longer Diagnosis Line: Present Diagnosis Line: Vent. rate has increased BY 64 BPM Diagnosis Line: Non-specific change in ST segment in Inferior Diagnosis Line: leads Diagnosis Line: ST now depressed in Lateral leads Diagnosis Line: T wave inversion now evident in Inferior leads Diagnosis Line: Confirmed by SILVIA SANTIAGO MD ([id number]) on 06/14/2016 Diagnosis Line: 7:42:19 AM INTERPRETING MD: JACK MIRELES
--- NOTE | ~2016-06-12 | HP ---
Unit #: [id number] #: [id number] Patient: ANAYELI KHAN [id number] [address] [place], [place] [address] [id number] I MR#: [id number] NAME: ANAYELI KHAN ROOM: [facility] Age: 75 Sex: F Admission Date: 06/12/2016 : 1940 Attending Physician: Lindy Gonzalez M.D. Primary Care Physician: Andrés Darby M.D. HISTORY AND PHYSICAL CHIEF COMPLAINT High fever and chills. HISTORY OF PRESENT ILLNESS Ms. Anayeli Khan is a 75-year-old female who had a very extensive stay recently. Was discharged on 06/04/16 after extensive workup for fever of unknown origin although the patient was afebrile a week prior to being discharged. The patient was discharged home, and she was doing very well according to the patient and her daughter, who is in the room. She was walking around, was taking all her medications. She went to see her primary care provider on Friday. Lab workup was done, and her sodium was good. She had home health nurse coming to her home. Her vital signs were stable. Yesterday around 5 o'clock she started having chills. The patient's daughter checked her temperature, and she was afebrile. The patient went to sleep. After 3 hours or 4 hours, she woke up, and she was having a lot of chills, and her temperature was 104. The patient was brought to the ER and was found to have a temperature of 104. The patient has been having some cough but no sputum production, no chest pain, no shortness of breath more than normal, no complaint of any neck pain or lower extremity tingling or numbness. The patient has also been found to have elevated troponin and elevated BNP level. The patient is being admitted to the ICU at this time. PAST MEDICAL HISTORY 1. Paroxysmal atrial fibrillation, on chronic anticoagulation therapy with Pradaxa. 2. Coronary artery disease. 3. Hypothyroidism. 4. History of peripheral vascular disease status post carotid stent. 5. Chronic hyponatremia. 6. COPD. 7. Hyperlipidemia. PAST SURGICAL HISTORY 1. History of appendectomy. 2. History of cardiac cath. 3. History of partial hysterectomy. 4. History of bilateral oophorectomy later on. ALLERGIES Tegretol and gabapentin. SOCIAL HISTORY Unit #: [id number] #: [id number] Patient: ANAYELI KHAN The patient lives at home with her daughter. No history of smoking, alcohol or drug abuse. REVIEW OF SYMPTOMS A 12-point review of systems was done. Is as per history of present illness. No complaint of chest pain. No complaint of abdominal pain. No complaint of nausea, vomiting. No complaint of constipation or diarrhea. No complaint of dizziness or syncopal episode. HOME MEDICATIONS 1. Acetaminophen 500 q.6 p.r.n. 2. Aricept 5 mg daily. 3. Prednisone 30 mg daily. 4. Remeron 15 mg at bedtime. 5. Ipratropium 3 mL q.i.d. 6. Levothyroxine 50 mcg daily. 7. Vitamin B12 two tablets daily. 8. Pradaxa 150 mg b.i.d. 9. Symbicort 2 puffs inhaled b.i.d. 10. Sodium chloride 1 gram b.i.d. 11. Coreg 3.125 mg b.i.d. 12. Bumex 1 mg daily. 13. Ferrous sulfate 325 mg p.o. b.i.d. 14. Vitamin D 50,000 units weekly. 15. Aspirin 81 mg daily. 16. Ultram 50 mg q.4 p.r.n. 17. Zofran 4 mg q.4 p.r.n. 18. Lorazepam 1 mg b.i.d. 19. Nitroglycerin 0.4 mg sublingual p.r.n. PHYSICAL EXAMINATION GENERAL: The patient is lying comfortably in bed in no respiratory distress. The patient is being evaluated in the ICU. VITAL SIGNS: Blood pressure was 123/53, respiratory rate 40 on admission, pulse 106, temperature 103.5. At this time the patient's "blood pressure is 96.4," blood pressure is 96/49, heart rate 73. HEENT: Head is normocephalic. Eye movements are normal. CHEST: Decreased air entry bilaterally. Crackles are heard. CVS: S1, S2 positive. Regular rhythm. ABDOMEN: Obese, soft. No tenderness. Bowel sounds are positive. EXTREMITIES: Negative edema. OPEN HEARTH MELTER: The patient is awake, alert and oriented x2 for sure. The patient's daughter is in the room. DIAGNOSTIC STUDIES LAB WORKUP: Troponin 1.94. Lactic acid 1. Procalcitonin 0.44. BNP elevated to 640. WBC 12.2, hemoglobin 10.9, hematocrit 33.4, platelet count 101. Ammonia 43. Influenza A and B negative. IMAGING: Chest x-ray - Multiple infiltrates bilaterally. ASSESSMENT AND PLAN 1. The patient is being admitted to ICU with acute respiratory failure. 2. Acute on chronic diastolic congestive heart failure. 3. Acute ST elevation OH. 4. Probable pneumonia. 5. Hypotension. 6. Fever of unknown cause. Unit #: [id number] #: [id number] Patient: ANAYELI KHAN 7. Anemia and thrombocytopenia. 8. History of paroxysmal atrial fibrillation. OTHER MEDICAL HISTORY 1. Coronary artery disease status post PCI. 2. Hyponatremia. 3. Diabetes mellitus. 4. COPD. 5. Hypothyroidism. 6. Peripheral vascular disease. PLAN Admit to ICU. Dr. Mirza has been consulted. The patient's Pradaxa has been discontinued. The patient is being started on Bumex 1 mg IV b.i.d. and Integrilin drip as per cardiology. Low-dose heparin is being started. Home medications have been reviewed and adjusted. Broad-spectrum IV antibiotics are started for probable pneumonia. Dr. Lloyd Ace has been consulted. We will consult infectious disease again because the patient still has very high fever. Dr. Mock is being consulted. May need repeat bone marrow biopsy. Panculture is being done. Please refer to progress note for further orders. I have discussed with the patient's daughter at length about plan of care. She does verbalize understanding. Dictated by Candice Brambila TD: 06/12/2016 16:12 JOB #: [id number] HISTORY AND PHYSICAL Page 1 of 1 X Lindy Gonzalez MD HISTORY AND PHYSICAL
--- NOTE | ~2016-06-12 | DS ---
Unit #: [id number] #: [id number] Patient: ANAYELI KHAN [id number] [address] [address] [id number] I MR#: [id number] NAME: ANAYELI KHAN ROOM: 552 Age: 75 Sex: F Admission Date: 06/12/2016 : 1940 Discharge Date: 06/19/2016 Attending Physician: Lindy Gonzalez M.D. Primary Care Physician: Andrés Darby M.D. DISCHARGE SUMMARY FINAL DIAGNOSES 1. Acute ST elevation myocardial infarction. 2. Coronary artery disease, catheterization was done in February 2016, which showed patent left anterior descending coronary artery stent, ostial right coronary artery and obtuse marginal 70%. 3. Left ventricular ejection fraction of 55%. 4. Thrombocytopenia. 5. Anemia. 6. Healthcare facility-acquired pneumonia. 7. Chronic obstructive pulmonary disease. 8. Paroxysmal atrial fibrillation. 9. Hypothyroidism. 10. History of peripheral vascular disease, status post carotid stent. 11. Chronic hyponatremia. 12. Hyperlipidemia. 13. Diabetes mellitus. 14. Acute on chronic diastolic congestive heart failure. DISCHARGE MEDICATIONS 1. Vitamin B12 at 2000 mcg p.o. daily. 2. Vitamin D continue home dose. 3. Zofran 4 mg q.6 p.r.n. 4. Xanax 0.25 mg three times a day. 5. Dulera 200/5 two puffs inhaler twice a day. 6. Lopressor 25 mg twice a day. 7. Aricept 5 mg nightly. 8. Bumex 2 mg twice a day. 9. Nebulizer treatment with albuterol and ipratropium q.i.d. 10. Prednisone 20 mg daily for four days, decrease to 10 mg for four days, and then discontinue. 11. Tylenol 500 mg q.6 p.r.n. 12. Mag-Oxide 400 mg twice a day. 13. Amiodarone 200 mg twice a day for one week and then 200 mg daily. 14. Remeron 15 mg nightly. 15. Sodium chloride 1 g b.i.d. 16. Synthroid 50 mcg daily. 17. Imdur ER 30 mg daily. 18. Nitroglycerin 0.4 mg sublingual p.r.n. for chest pain. 19. Ferrous sulfate 324 mg twice a day. 20. Lipitor 80 mg nightly. 21. Levemir 10 units subcutaneous daily. 22. Aspirin 81 mg daily. 23. Spironolactone 12.5 mg daily. 24. Protonix 40 mg daily. Unit #: [id number] #: [id number] Patient: ANAYELI KHAN 25. Potassium chloride 40 mEq daily. 26. Pradaxa - will confirm with cardiology before discharge. DIAGNOSTIC STUDIES LABORATORY: Lab workup on discharge: Glucose is 180, WBC 5.2, hemoglobin 9, hematocrit 27.2, and platelet count 60,000. Sodium 136, potassium 3.6, chloride 99, BUN 16, creatinine 0.6, calcium 8. Blood cultures: No growth. Magnesium 1.8. Urine culture was no growth. Lipid profile: Total cholesterol 115, triglycerides 370, LDL 36, HDL less than 5. Influenza A and B on admission was negative. Troponin on admission was 0.58, it did go up to 1.94. CONSULTATIONS DURING HOSPITALIZATION 1. Dr. Mirza from cardiology services. 2. Dr. Lloyd Ace from pulmonary services. 3. Dr. Houston from infectious disease services. 4. Dr. Mock from hematology services. HOSPITAL COURSE Ms. Khan is a 75-year-old female, who was recently discharged from hospital on June 04. She returned back on June 12 with high fever and chills and shortness of breath. She has multiple medical problems including paroxysmal atrial fibrillation, chronic anticoagulation, peripheral vascular disease, coronary artery disease, chronic hyponatremia, diabetes, COPD, hyperlipidemia, hypertension, and hypothyroidism. Patient did not complain of chest pain, did not have any palpitations but she did have heart racing one night. Patient complained of a lot of chills. She was diagnosed with recurrent fever, bilateral pneumonia, elevated troponin with ST elevation and acute NM, acute on chronic diastolic heart failure. The patient was admitted to ICU on admission, later on transferred to telemetry unit. The patient was seen by Dr. Mirza and Dr. Lloyd Ace during the hospitalization. The patient received IV Zosyn during hospitalization. Will discuss with Dr. Ace about antibiotics before discharge. The patient's prednisone is being tapered at this time. As per Dr. Mirza, it should be conservative treatment. After discussion with daughter, the patient's code status was changed to DNR. The patient does have obstructive sleep apnea and she needs to use CPAP at night. The patient's cardiac medications were adjusted as per cardiology. Amiodarone is being added. The patient is stable at this time, is being discharged to senior care in stable condition. PHYSICAL EXAMINATION VITAL SIGNS: Vital signs on discharge: Blood pressure 105/39, (1) 88, temperature 97.8. CHEST: Chest has good breath sounds. CARDIOVASCULAR: Regular rhythm. ABDOMEN: Bowel sounds are positive. DISCHARGE INSTRUCTIONS 1. The patient is being discharged to senior care in stable condition. 2. Follow with Dr. Mirza on August 05 at 12:30 on Friday. 3. PT/OT at senior care. 4. Accu-Cheks a.c. and at bedtime at senior care. Unit #: [id number] #: [id number] Patient: ANAYELI KHAN Dictated by... Candice Brambila/kin TD: 06/19/2016 12:14 JOB #: [id number] DISCHARGE SUMMARY Page 1 of 1 X Lindy Gonzalez MD X DISCHARGE SUMMARY
--- NOTE | ~2016-06-12 | EKG ---
PATIENT: ANAYELI KHAN UNIT #: [id number] Ventricular Rate: 115 BPM Atrial Rate: 115 BPM P-R Interval: 168 ms QRS Duration: 74 ms Q-T Interval: 314 ms QTC Calculation(Bezet): 434 ms P [place]: 58 degrees Calculated R [place]: 32 degrees Calculated T [place]: 111 degrees Diagnosis Line: Sinus tachycardia Diagnosis Line: Low voltage QRS Diagnosis Line: ST and T wave abnormality, consider lateral ischemia Diagnosis Line: Abnormal ECG Diagnosis Line: When compared with ECG of 31-MAY-2016 13:07, Diagnosis Line: Premature ventricular complexes are no longer Diagnosis Line: Present Diagnosis Line: Nonspecific T wave abnormality no longer evident Diagnosis Line: in Inferior leads Diagnosis Line: T wave inversion less evident in Anterolateral Diagnosis Line: leads Diagnosis Line: Confirmed by SILVIA SANTIAGO MD ([id number]) on 06/14/2016 Diagnosis Line: 7:35:24 AM INTERPRETING MD: JACK MIRELES
--- NOTE | ~2016-06-12 | CO ---
Unit #: [id number] #: [id number] Patient: ANAYELI KHAN [id number] [address] [place], [place] [address] [id number] I MR#: [id number] NAME: ANAYELI KHAN ROOM: [facility] Age: 75 Sex: F Admission Date: 06/12/2016 : 1940 Attending Physician: Lindy Gonzalez M.D. Primary Care Physician: Andrés Darby M.D. CONSULTATION REPORT HISTORY OF PRESENT ILLNESS Ms. Khan is a 75-year-old white female, who I have seen in the past for sleep apnea. She has recently been hospitalized in early to mid May with fever of unknown origin. She has a history of coronary artery disease and congestive heart failure. She apparently had been in her usual state of health. She is maintained on prednisone 30 mg daily for possible rheumatologic disease causing fever. She became more short of breath and febrile at home. She had increased lower extremity and had gained 20 pounds according to her weights at her doctor's office last week and presently. On admission, she denied any chest pain. She did feel like her heart was racing last night. She has had no purulent sputum. She has had a fever of 104 at home and came to the emergency room, where her chest x-ray revealed bilateral infiltrates which were new compared to x-rays from 05/2016. Her lab work is significant for arterial blood gas, which reveals a pH of 7.56, pCO2 of 34, pO2 of 66 on 3.5 L. Her lactic acid level was 1.0. Her BNP was 640. Her troponin was 0.61, procalcitonin was 0.44, coags were normal. White blood cell count was 12,200, hematocrit 33.5, platelet count of 100,000 slightly lower than earlier this month. We were asked to see. PAST MEDICAL HISTORY She has a history of KEVIN, maintained on CPAP, makes her pressure too low; history of paroxysmal atrial fibrillation, maintained on Pradaxa; history of coronary artery disease; history of peripheral vascular disease, status post right carotid stent; history of some degree of COPD; hyperlipidemia; hypothyroidism; depression; hyperlipidemia; vitamin B12 deficiency; and diabetes. PAST SURGICAL HISTORY Total abdominal hysterectomy with BSO, cataract extraction, appendectomy, right carotid endarterectomy, stent placement in carotid. ALLERGIES Tegretol. HOME MEDICATIONS Mapap, Aricept, prednisone, Remeron, DuoNeb, levothyroxine, vitamin B12, Pradaxa, Symbicort, sodium chloride tablets, Coreg, Bumex, ferrous sulfate, vitamin D2, aspirin, Ultram, Zofran, lorazepam, and nitroglycerin. SOCIAL HISTORY Lives with daughter. Smoked a bit when she was in her 20s, but really none any other time. No alcohol or illicit drugs. Unit #: [id number] #: [id number] Patient: ANAYELI KHAN FAMILY HISTORY Diabetes and coronary artery disease. REVIEW OF SYSTEMS As noted 10-point system, otherwise negative. PHYSICAL EXAMINATION VITAL SIGNS: Blood pressure is 89/39, pulse is 68, respiratory rate 22, temperature 95.6, T-max 104.3. HEENT: Normocephalic and atraumatic. Pupils are equal, round, and reactive. Sclerae nonicteric. Nasal passages patent. Posterior pharynx crowded. Mallampati IV. NECK: Supple. Trachea midline. LUNGS: Rales bilaterally. CARDIAC: Regular rate and rhythm. Could not appreciate murmur, rub, or gallop. ABDOMEN: Nontender. Bowel sounds present. No hepatosplenomegaly. EXTREMITIES: Without clubbing, cyanosis, 1+ edema. No cords palpated. NEUROLOGIC: Awake, alert, and oriented x3. Cranial nerves intact. Muscle strength symmetric. Affect calm. Has heating blanket on. IMPRESSION 1. Acute on chronic respiratory failure, hypoxemic. 2. Bilateral infiltrates, congestive heart failure versus pneumonia. 3. Fever and subsequent hypothermia. 4. Chronic steroids use. 5. Presume rheumatologic disease. 6. Chronic obstructive pulmonary disease. 7. Obstructive sleep apnea. PLAN Administer O2 to maintain adequate saturations. Can add BiPAP as needed. We would use BiPAP nocturnally with sleep. Would cover with stress steroid. She has developed some hypotension and hypothermia, steroids may help this. Cardiology is seeing and ruling out LA and diuresing. We will cover with broad-spectrum antibiotics given fever and possible sepsis. We will make further recommendations pending this. ID hr business partner consultant to be consulted for persistent fever, etc. Dictated by... Marvel Ace M.D. SOILA/rajni TD: 06/13/2016 01:58 JOB #: [id number] CONSULTATION REPORT Page 1 of 1 X Marvel Ace MD CONSULTATION REPORT
--- NOTE | ~2016-06-12 | CT4 ---
[facility] A Service of [facility] RADIOLOGY TEXT RESULTS PATIENT: ANAYELI KHAN LOCATION: [place] [address] : [birth year] UNIT #: [id number] AGE: [address]: Lindy Gonzalez MD SEX: F ORDER DR: [id number] [facility] [address] [facility]. [place], [place] [address] [id number] I MR#: [id number] Acc #: [id number] NAME: ANAYELI KHAN. : 1940 SEX: F STUDY DATE/TIME: 06/15/2016 13:49 UNIT: B ROOM: [facility] STUDY DESCRIPTION: CT Abd and Pelv Wo Cont Attending Physician: Lindy Gonzalez M.D. Ordering Physician: Vishal Agarwal M.D. Primary Care Physician: Andrés Darby M.D. MEDICAL IMAGING REPORT This report is preliminary unless electronic signature is present EXAM CT abdomen and pelvis without contrast HISTORY Diarrhea x3 days, fever, shortness of air, pneumonia. COMPARISON CT abdomen and pelvis 05/26/[address] exam was performed with one or more of the following radiation dose reduction techniques: automatic control, adjustment of mA and/or kV according to patient size, and iterative reconstruction. FINDINGS Axial images performed through the abdomen and pelvis following oral contrast only. Multiplanar reconstructed images reviewed at a workstation. Lung bases demonstrates diffuse patchy alveolar opacities which may represent multifocal edema or multifocal pneumonia. No effusions. Liver, spleen, gallbladder unremarkable. Pancreas and adrenal glands unremarkable. A small amount of nonspecific perinephric stranding or edema. There is also mild mesenteric stranding and edema nonspecific. The stomach is distended with food material and contrast suggestive of a component of gastric ileus or atony. No small bowel or colonic distension. Scattered colonic diverticula. Retroperitoneum unremarkable except for mild atherosclerotic changes. PELVIS: Chin catheter within a decompressed bladder. Left inguinal hernia containing omental fat only. Mild degenerative changes lumbar spine. IMPRESSION [facility] A Service of [facility] RADIOLOGY TEXT RESULTS PATIENT: ANAYELI KHAN LOCATION: [place] [address] : [birth year] UNIT #: [id number] AGE: [address]: Lindy Gonzalez MD SEX: F ORDER DR: 1. Moderate amount of retained food debris within the stomach may represent a component of gastric atony or ileus. No evidence to suggest a high-grade obstruction. 2. Nonspecific perinephric stranding mesenteric edema. 3. Left inguinal hernia containing omental fat only. 4. Diffuse airspace disease throughout both lungs could represent pulmonary edema or diffuse multifocal pneumonia. Dictated by... Tiff Bolivar M.D. THIS IS AN ELECTRONICALLY VERIFIED REPORT Tiff Bolivar M.D. at 06/16/2016 10:51 PM YADIRA/zully TD: 06/16/2016 04:30 JOB #: [id number] MEDICAL IMAGING REPORT Page 1 of 1 COPY
[2016-06-12 01:54] LABS: ARTERIAL BLD GAS O2 SATURATION 93.2 % (90.0-100.0); ARTERIAL BLOOD GAS CARBOXY HB 1.7 %sat (0.0-9.0); ARTERIAL BLOOD GAS HCO3 31.5 mmol/L; ARTERIAL BLOOD GAS MET HB 0.6 %sat (0.0-2.0); ARTERIAL BLOOD GAS PCO2 34.9 mmHg (35.0-45.0); ARTERIAL BLOOD GAS pH 7.564 (7.350-7.450)
[2016-06-12 01:55] LABS: ARTERIAL BLOOD GAS ALLEN TEST NORMAL; ARTERIAL BLOOD GAS ART SITE LEFT RADIAL; ARTERIAL BLOOD GAS DELIVERY NASAL CANNULA; ARTERIAL BLOOD GAS LITER FLOW 3.5; ARTERIAL BLOOD GAS PO2 66.2 mmHg (80.0-100); ARTERIAL DRAW? YES
[~2016-06-12 01:58] MED LIST changes: +AMIODARONE HCL100 MG PO; +ARICEPT5 M1 PO; +BUMEX1 MG PO; +DESENEX45 G1 EXT; +FERROUS GL324 ( 36 ) PO; +IPRAT-ALBUT 0.5-3 ML INH; +K-LOR20 MEQ PO; +LORAZEPAM1 MG PO; +LOSARTAN POTASS25 MG PO; +MAPAP500 M1 PO; +MELATONIN5 M1 PO; +MILK OF MAGNESIA PO; +NITROGLYGERIN0.4 MG SL; +NOVOLOG100 U/ML SUBQ; +REMERON15 MG PO; +SANTYL15 G1 TOP; +SODIUM CHLORIDE1 GM PO; +ULTRAM PO; +ZOFRAN IVP
[2016-06-12 02:11] LABS: POC - CKMB 1.6 ng/mL (0.0-7.9); POC - TROPONIN 0.58 ng/mL (<=0.05)
[2016-06-12 02:17] LABS: BASOPHIL# 0.1 X10e3 (0-0.3); BASOPHIL% 0.7 % (0-2.5); HEMATOCRIT 33.4 % (35.0-45.0); HEMOGLOBIN 10.9 gm/dL (12.0-16.0); LYMPHOCYTE# 1.9 X10e3 (1.0-3.5); LYMPHOCYTE% 15.7 % (17.0-45.0); MEAN CELL VOLUME 97.6 FL (83-96); MEAN CORPUSCULAR HEMOGLOBIN 31.9 PG (28-34); MEAN CORPUSCULAR HGB CONC 32.6 g/dL (30-36); MEAN PLATELET VOLUME 9.3 FL (6.5-11.5); MONOCYTE# 1.8 X10e3 (0-1.0); MONOCYTE% 14.7 % (3.0-12.0); NEUTROPHIL# 8.4 X10e3 (1.5-7.1); NEUTROPHIL% 68.9 % (40-75); PLATELET COUNT 101 X10e3 (140-420); RED BLOOD COUNT 3.42 X10e (3.90-5.30); RED CELL DISTRIBUTION WIDTH 21.8 % (11.0-15.5); WHITE BLOOD COUNT 12.2 X10e3 (4.0-10.5)
[2016-06-12 02:18] LABS: DIFF IND YES
[2016-06-12 02:29] LABS: INR 1.1; PARTIAL THROMBOPLASTIN TIME 26.3 SECONDS (23.5-31.3); PROTHROMBIN TIME (PATIENT) 11.8 SECONDS (9.6-11.5)
[2016-06-12 02:30] LABS: INFLUENZA A NEG (NEG); INFLUENZA B NEG (NEG)
[2016-06-12 02:37] LABS: ALKALINE PHOSPHATASE 80 U/L (32-92); ALT (SGPT) 38 U/L (10-40); AST (SGOT) 68 U/L (10-42); BILIRUBIN, DIRECT 0.2 mg/dL (0.0-0.2); BILIRUBIN,INDIRECT 0.7 mg/dL (0.0-0.9); BILIRUBIN,TOTAL 0.9 mg/dL (0.2-2.0); BLOOD UREA NITROGEN 23 mg/dL (9-23); BUN/CREATININE RATIO 28.75; CALCIUM SERUM 8.5 mg/dL (8.4-10.2); CARBON DIOXIDE 29 mmol/L (22-31); CHLORIDE 96 mmol/L (100-111); CREATININE SERUM 0.8 mg/dL (0.6-1.4); GLOM FILT RATE Estimated ABOVE60 mL/min (>60); GLUCOSE FASTING 96 mg/dL (70-110); POTASSIUM 4.1 mmol/L (3.5-5.1); PROTEIN TOTAL SERUM 5.8 g/dL (6.0-8.3); SODIUM 134 mmol/L (135-145)
[2016-06-12 02:41] LABS: PLATELET ESTIMATE DECREASED (NORMAL); VACUOLIZATION P
[2016-06-12 02:42] LABS: HYPOCHROMIA SL; POLYCHROMASIA SL
[2016-06-12 03:39] LABS: URINE SOURCE CLEAN CATCH
[2016-06-12 03:49] LABS: URINE APPEARANCE CLEAR; URINE BILIRUBIN NEG (NEG); URINE BLOOD NEG (NEG); URINE COLOR YELLOW; URINE GLUCOSE >1000 MG/DL (NEG); URINE KETONE NEG (NEG); URINE LEUKOCYTE ESTERASE TRACE (NEG); URINE NITRATE NEG (NEG); URINE PH 8.5 (5-8); URINE PROTEIN 1+ (NEG); URINE SPECIFIC GRAVITY 1.023 (1.003-1.035)
[2016-06-12 03:52] LABS: URBCS1 AUWI 0-2 /[HPF] (0-2); URINE BACTERIA AUWI NEG (NEGATIVE); URINE SQUAMOUS EPITHELIAL CELL FEW /[HPF]
[2016-06-12 04:04] LABS: CULTURE INDICATED? NO
[2016-06-12 06:31] LABS: CK TOTAL 35 IU/L (26-140)
[2016-06-12 10:47] LABS: CHOLESTEROL 115 mg/dL (0-200); HDL CHOLESTEROL <5 mg/dL (35-95); LDL CHOLESTEROL 36 mg/dL (-130); LDL/HDL RATIO 7 RATIO (0-4); TRIGLYCERIDES 370 mg/dL (10-160)
[2016-06-12 13:31] LABS: CK TOTAL 26 IU/L (26-140)
[2016-06-12 14:12] LABS: HEMATOCRIT 25.8 % (35.0-45.0); MEAN CELL VOLUME 99.2 FL (83-96); MEAN CORPUSCULAR HEMOGLOBIN 32.4 PG (28-34); MEAN CORPUSCULAR HGB CONC 32.6 g/dL (30-36); MEAN PLATELET VOLUME 9.4 FL (6.5-11.5); RED BLOOD COUNT 2.6 X10e (3.90-5.30); RED CELL DISTRIBUTION WIDTH 21.4 % (11.0-15.5); WHITE BLOOD COUNT 8.7 X10e3 (4.0-10.5)
[2016-06-12 14:36] LABS: HEMOGLOBIN 8.4 gm/dL (12.0-16.0)
[2016-06-12 17:40] LABS: CK TOTAL 19 IU/L (26-140)
[2016-06-13 02:56] LABS: BASOPHIL% 0.3 % (0-2.5); HEMATOCRIT 30.1 % (35.0-45.0); HEMOGLOBIN 9.9 gm/dL (12.0-16.0); LYMPHOCYTE# 0.7 X10e3 (1.0-3.5); MEAN CELL VOLUME 97.3 FL (83-96); MEAN CORPUSCULAR HEMOGLOBIN 31.9 PG (28-34); MEAN CORPUSCULAR HGB CONC 32.7 g/dL (30-36); MEAN PLATELET VOLUME 9.1 FL (6.5-11.5); MONOCYTE# 1.1 X10e3 (0-1.0); MONOCYTE% 14.8 % (3.0-12.0); NEUTROPHIL# 5.9 X10e3 (1.5-7.1); NEUTROPHIL% 75.9 % (40-75); PLATELET COUNT 74 X10e3 (140-420); RED CELL DISTRIBUTION WIDTH 20.3 % (11.0-15.5); WHITE BLOOD COUNT 7.8 X10e3 (4.0-10.5)
[2016-06-13 02:57] LABS: DIFF IND NO
[2016-06-13 03:27] LABS: BLOOD UREA NITROGEN 23 mg/dL (9-23); BUN/CREATININE RATIO 28.75; CARBON DIOXIDE 29 mmol/L (22-31); CHLORIDE 99 mmol/L (100-111); CREATININE SERUM 0.8 mg/dL (0.6-1.4); GLOM FILT RATE Estimated ABOVE60 mL/min (>60); GLUCOSE FASTING 250 mg/dL (70-110); POTASSIUM 4.1 mmol/L (3.5-5.1); SODIUM 138 mmol/L (135-145)
[2016-06-13 13:59] LABS: BASOPHIL% 0.3 % (0-2.5); DIFF IND YES; HEMATOCRIT 28.8 % (35.0-45.0); HEMOGLOBIN 9.2 gm/dL (12.0-16.0); LYMPHOCYTE# 0.8 X10e3 (1.0-3.5); LYMPHOCYTE% 11.7 % (17.0-45.0); MEAN CELL VOLUME 98.8 FL (83-96); MEAN CORPUSCULAR HEMOGLOBIN 31.8 PG (28-34); MEAN CORPUSCULAR HGB CONC 32.1 g/dL (30-36); MEAN PLATELET VOLUME 9.6 FL (6.5-11.5); MONOCYTE# 1.2 X10e3 (0-1.0); MONOCYTE% 17.2 % (3.0-12.0); NEUTROPHIL% 70.8 % (40-75); PLATELET COUNT 74 X10e3 (140-420); RED BLOOD COUNT 2.91 X10e (3.90-5.30); RED CELL DISTRIBUTION WIDTH 20.7 % (11.0-15.5); WHITE BLOOD COUNT 7.1 X10e3 (4.0-10.5)
[2016-06-13 14:29] LABS: ANISOCYTOSIS MOD
[2016-06-13 14:32] LABS: PLATELET ESTIMATE DECREASED (NORMAL)
[2016-06-14 05:42] LABS: BASOPHIL% 0.3 % (0-2.5); HEMATOCRIT 26.7 % (35.0-45.0); HEMOGLOBIN 8.8 gm/dL (12.0-16.0); LYMPHOCYTE# 0.5 X10e3 (1.0-3.5); LYMPHOCYTE% 7.3 % (17.0-45.0); MEAN CELL VOLUME 97.3 FL (83-96); MEAN CORPUSCULAR HEMOGLOBIN 31.9 PG (28-34); MEAN CORPUSCULAR HGB CONC 32.8 g/dL (30-36); MEAN PLATELET VOLUME 9.3 FL (6.5-11.5); NEUTROPHIL# 5.3 X10e3 (1.5-7.1); NEUTROPHIL% 77.4 % (40-75); PLATELET COUNT 77 X10e3 (140-420); RED BLOOD COUNT 2.75 X10e (3.90-5.30); RED CELL DISTRIBUTION WIDTH 20.5 % (11.0-15.5); WHITE BLOOD COUNT 6.8 X10e3 (4.0-10.5)
[2016-06-14 06:00] LABS: DIFF IND NO
[2016-06-14 06:15] LABS: CALCIUM SERUM 7.7 mg/dL (8.4-10.2); CREATININE SERUM 0.8 mg/dL (0.6-1.4); GLOM FILT RATE Estimated 71.7 mL/min (>60); POTASSIUM 3.2 mmol/L (3.5-5.1)
[2016-06-15 03:15] LABS: BASOPHIL% 0.6 % (0-2.5); EOSINOPHIL% 0.1 % (0.0-7.0); HEMOGLOBIN 10.2 gm/dL (12.0-16.0); LYMPHOCYTE# 1.1 X10e3 (1.0-3.5); LYMPHOCYTE% 14.7 % (17.0-45.0); MEAN CELL VOLUME 97.4 FL (83-96); MEAN CORPUSCULAR HGB CONC 32.9 g/dL (30-36); MEAN PLATELET VOLUME 9.3 FL (6.5-11.5); MONOCYTE# 1.2 X10e3 (0-1.0); NEUTROPHIL% 68.6 % (40-75); RED BLOOD COUNT 3.19 X10e (3.90-5.30); RED CELL DISTRIBUTION WIDTH 20.3 % (11.0-15.5); WHITE BLOOD COUNT 7.3 X10e3 (4.0-10.5)
[2016-06-15 03:16] LABS: DIFF IND NO; PLATELET COUNT 88 X10e3 (140-420)
[2016-06-15 03:36] LABS: ALBUMIN SERUM 2.8 g/dL (3.5-5.0); BILIRUBIN,TOTAL 1.5 mg/dL (0.2-2.0); BUN/CREATININE RATIO 31.42; CALCIUM SERUM 8.3 mg/dL (8.4-10.2); CREATININE SERUM 0.7 mg/dL (0.6-1.4); GLOM FILT RATE Estimated 84.2 mL/min (>60); PROTEIN TOTAL SERUM 5.7 g/dL (6.0-8.3)
[2016-06-15 11:22] LABS: CK TOTAL 6 IU/L (26-140)
[2016-06-16 06:32] LABS: BASOPHIL% 0.2 % (0-2.5); HEMATOCRIT 27.2 % (35.0-45.0); HEMOGLOBIN 8.9 gm/dL (12.0-16.0); LYMPHOCYTE# 0.6 X10e3 (1.0-3.5); LYMPHOCYTE% 13.7 % (17.0-45.0); MEAN CELL VOLUME 98.6 FL (83-96); MEAN CORPUSCULAR HEMOGLOBIN 32.3 PG (28-34); MEAN CORPUSCULAR HGB CONC 32.7 g/dL (30-36); MEAN PLATELET VOLUME 9.7 FL (6.5-11.5); MONOCYTE# 0.9 X10e3 (0-1.0); MONOCYTE% 19.5 % (3.0-12.0); NEUTROPHIL# 3.2 X10e3 (1.5-7.1); NEUTROPHIL% 66.6 % (40-75); PLATELET COUNT 74 X10e3 (140-420); RED BLOOD COUNT 2.76 X10e (3.90-5.30); WHITE BLOOD COUNT 4.7 X10e3 (4.0-10.5)
[2016-06-16 06:33] LABS: DIFF IND NO
[2016-06-16 06:50] LABS: BUN/CREATININE RATIO 33.33; CALCIUM SERUM 7.6 mg/dL (8.4-10.2); CREATININE SERUM 0.6 mg/dL (0.6-1.4); GLOM FILT RATE Estimated 88.5 mL/min (>60); MAGNESIUM 1.8 mg/dL (1.6-3.0); POTASSIUM 3.7 mmol/L (3.5-5.1)
[2016-06-17 06:21] LABS: BASOPHIL# 0.1 X10e3 (0-0.3); BASOPHIL% 0.8 % (0-2.5); EOSINOPHIL% 0.3 % (0.0-7.0); HEMATOCRIT 28.8 % (35.0-45.0); HEMOGLOBIN 9.6 gm/dL (12.0-16.0); LYMPHOCYTE# 0.8 X10e3 (1.0-3.5); LYMPHOCYTE% 13.8 % (17.0-45.0); MEAN CELL VOLUME 98.1 FL (83-96); MEAN CORPUSCULAR HEMOGLOBIN 32.8 PG (28-34); MEAN CORPUSCULAR HGB CONC 33.4 g/dL (30-36); MONOCYTE# 0.7 X10e3 (0-1.0); MONOCYTE% 12.2 % (3.0-12.0); NEUTROPHIL# 4.5 X10e3 (1.5-7.1); NEUTROPHIL% 72.9 % (40-75); PLATELET COUNT 71 X10e3 (140-420); RED BLOOD COUNT 2.94 X10e (3.90-5.30); RED CELL DISTRIBUTION WIDTH 20.2 % (11.0-15.5); WHITE BLOOD COUNT 6.2 X10e3 (4.0-10.5)
[2016-06-17 06:24] LABS: DIFF IND YES
[2016-06-17 06:35] LABS: ANISOCYTOSIS MOD; PLATELET ESTIMATE DECREASED (NORMAL)
[2016-06-17 07:11] LABS: BUN/CREATININE RATIO 23.75; CALCIUM SERUM 7.9 mg/dL (8.4-10.2); CREATININE SERUM 0.8 mg/dL (0.6-1.4); GLOM FILT RATE Estimated 71.7 mL/min (>60); MAGNESIUM 1.9 mg/dL (1.6-3.0); POTASSIUM 3.4 mmol/L (3.5-5.1)
[2016-06-18 07:05] LABS: BUN/CREATININE RATIO 26.66; CREATININE SERUM 0.6 mg/dL (0.6-1.4); GLOM FILT RATE Estimated 88.5 mL/min (>60); POTASSIUM 3.6 mmol/L (3.5-5.1)
[2016-06-18 10:36] LABS: BASOPHIL% 0.4 % (0-2.5); EOSINOPHIL% 0.1 % (0.0-7.0); HEMATOCRIT 31.8 % (35.0-45.0); HEMOGLOBIN 10.3 gm/dL (12.0-16.0); LYMPHOCYTE# 0.8 X10e3 (1.0-3.5); LYMPHOCYTE% 12.5 % (17.0-45.0); MEAN CELL VOLUME 99.9 FL (83-96); MEAN CORPUSCULAR HEMOGLOBIN 32.3 PG (28-34); MEAN CORPUSCULAR HGB CONC 32.3 g/dL (30-36); MEAN PLATELET VOLUME 10.2 FL (6.5-11.5); MONOCYTE# 0.6 X10e3 (0-1.0); PLATELET COUNT 70 X10e3 (140-420); RED BLOOD COUNT 3.18 X10e (3.90-5.30); RED CELL DISTRIBUTION WIDTH 20.8 % (11.0-15.5); WHITE BLOOD COUNT 6.4 X10e3 (4.0-10.5)
[2016-06-18 10:40] LABS: DIFF IND NO
[2016-06-19 05:46] LABS: BASOPHIL% 0.5 % (0-2.5); EOSINOPHIL% 0.2 % (0.0-7.0); HEMATOCRIT 27.2 % (35.0-45.0); LYMPHOCYTE# 0.8 X10e3 (1.0-3.5); LYMPHOCYTE% 14.6 % (17.0-45.0); MEAN CELL VOLUME 98.3 FL (83-96); MEAN CORPUSCULAR HEMOGLOBIN 32.6 PG (28-34); MEAN CORPUSCULAR HGB CONC 33.2 g/dL (30-36); MEAN PLATELET VOLUME 9.5 FL (6.5-11.5); MONOCYTE# 0.6 X10e3 (0-1.0); MONOCYTE% 11.6 % (3.0-12.0); NEUTROPHIL# 3.8 X10e3 (1.5-7.1); NEUTROPHIL% 73.1 % (40-75); PLATELET COUNT 60 X10e3 (140-420); RED BLOOD COUNT 2.76 X10e (3.90-5.30); RED CELL DISTRIBUTION WIDTH 20.7 % (11.0-15.5); WHITE BLOOD COUNT 5.2 X10e3 (4.0-10.5)
[2016-06-19 05:50] LABS: DIFF IND NO
== END 2016-06-19 15:26 | DRG 280 ==
LOC: CED 01:58 → CEDOF 02:55 → CICCU2 11:36 → C4C 06-14 23:40 → C5B 06-15 16:12
PROVIDERS: Emergency Medicine; Hospitalist; Internal Medicine Cardiovascular Disease; Internal Medicine Hematology & Oncology; Nurse Practitioner; Nurse Practitioner Family; Physician Assistant Medical
PROC: 30233N1 Transfusion of Nonautologous Red Blood Cells into Peripheral Vein, Percutaneous Approach (ICD-10-PCS; principal; 2016-06-12)
DX: I21.19 ST elevation (STEMI) myocardial infarction involving other coronary artery of inferior wall (principal); I50.33 Acute on chronic diastolic (congestive) heart failure; J96.21 Acute and chronic respiratory failure with hypoxia; J18.9 Pneumonia, unspecified organism; D69.6 Thrombocytopenia, unspecified; E87.1 Hypo-osmolality and hyponatremia; I48.0 Paroxysmal atrial fibrillation; J44.1 Chronic obstructive pulmonary disease with (acute) exacerbation; I11.0 Hypertensive heart disease with heart failure; I73.9 Peripheral vascular disease, unspecified; I25.10 Atherosclerotic heart disease of native coronary artery without angina pectoris; Z95.5 Presence of coronary angioplasty implant and graft; E78.5 Hyperlipidemia, unspecified; E03.9 Hypothyroidism, unspecified; Z90.711 Acquired absence of uterus with remaining cervical stump; Z98.49 Cataract extraction status, unspecified eye; Z90.49 Acquired absence of other specified parts of digestive tract; Z88.8 Allergy status to other drugs, medicaments and biological substances; D64.9 Anemia, unspecified; E87.6 Hypokalemia; E66.9 Obesity, unspecified; Z66 Do not resuscitate; E53.8 Deficiency of other specified B group vitamins; Z83.3 Family history of diabetes mellitus; Z82.49 Family history of ischemic heart disease and other diseases of the circulatory system; G47.33 Obstructive sleep apnea (adult) (pediatric)
CPT/HCPCS: 36600; 70450; 71010; 71020; 71250; 74176; 80048; 80053; 80061; 80076; 80202; 81003; 82140; 82308; 82550; 82553; 82803; 82947; 83036; 83605; 83735; 83880; 84132; 84484; 85025; 85027; 85610; 85652; 85730; 86140; 86850; 86900; 86901; 86922; 87040; 87086; 87804; 93005; 93306; 94640; 94660; 94664; 94760; 94761; 97110; 97116; 97162; 97166; 97530; 97535; 99291; C9113; G8978-GP; G8979-GP; G8980-GP; G8987-GO; G8988-GO; J0282; J1327; J1644; J1720; J1815; J2543; J2916; J3370; J3475; J3490; P9016